=== PATIENT | male | born 2000 | race Caucasian/White ===

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

== ENCOUNTER 2020-11-27 18:47 | Day surgery (SDC) | payer OTHER, SELFPAY ==
[2020-11-27 19:01] VITALS: BP 125/72; PULSE 77; RESP 16; TEMP 36.9; O2SAT 100; BMI 25.1
--- NOTE | 2020-11-27 19:24 | HMH.EDGENADL ---
ED Disposition Clinical Impression: Food impaction of esophagus Qualifiers: Encounter type: initial encounter Qualified Code(s): T18.128A - Food in esophagus causing other injury, initial encounter Disposition: Still a Patient Condition on Discharge: Fair Referrals: Ministerio Magaña PA [Primary Care Provider] - - Critical Care Critical Care Time: No Attestation: On 11/27/20, the high probability of a clinically significant, sudden or life threatening deterioration of the following system(s) required my full and direct attention, intervention and personal management. The time I documented below is in addition to time spent performing reported procedures but includes the following listed in this critical care notation. Medical Decision Making - Romain Inquiry Pt receiving controlled substance: No Vital Signs: 11/27/20 19:01 Temperature 98.5 F Temperature Source Oral Pulse Rate [Right] 77 Respiratory Rate 16 Blood Pressure [Right Arm] 125/72 Blood Pressure Mean [Right Arm] 89 Blood Pressure Source [Right Arm] Automatic Cuff Blood Pressure Position [Right Arm] Sitting 02 Sat by Pulse Oximetry 100 Oxygen Delivery Method Room Air - Lab Data Lab Results 11/27/20 19:05: WBC 6.9, RBC 5.57, Hgb 16.9, Hct 49.9, MCV 89.6, MCH 30.3, MCHC 33.9, RDW 12.9, Plt Count 351, MPV 7.5, Neut % (Auto) 45.6, Lymph % (Auto) 40.3, [place] % (Auto) 4.8, Eos % (Auto) 8.0, Baso % (Auto) 1.3, Neut # (Auto) 3.1, Lymph # (Auto) 2.8, [place] # (Auto) 0.3, Eos # (Auto) 0.6 H, Baso # (Auto) 0.1 11/27/20 19:05: Sodium 139, Potassium 4.0, Chloride 99, Carbon Dioxide 33 H, Anion Gap 11.0, BUN 9, Creatinine 1.10, Estimated Creat Clear 116, Estimated GFR 85, Est GFR ( Amer) 102, Glucose 104 H, Calcium 9.7 Result diagrams: 11/27/20 19:05 11/27/20 19:05 Orders (Tests/Meds): ORDERS Category Date Time Status Covid-19 IgG/IgM ([facility]) Stat Lab 11/27/20 19:05 Received - Physician Consults Physician Consulted: Keisha Time: 19:51 Reason -: Surgical Eval/Care Comment/Response: He will come in to perform endoscopy General Adult HPI - General Chief complaint: Skin/Abscess/Foreign Body Stated complaint: FB chicken stuck in throat Time Seen by Provider: 11/27/20 19:10 Mode of Arrival: Ambulatory Limitations: No Limitations Description of Symptoms (Recalled from ER Triage Doc. by RN): Pt states he was eating [employer] tonight and has a food bolus at this time, pt has had two dialations in the past. Pt attempted to sip water and was unable to get it to go down. - History of Present Illness HPI narrative: 45 minutes ago he was eating chicken and got a food bolus stuck in his lower esophagus. This is the fourth time it is happened. He has had to be dilated a couple of times. He says the last time he had an episode was about a year ago when he was treated here. He has tried to drink water and it comes back up. Complains of some discomfort in the region of his lower sternum. - Related Data Home Medications Medication Instructions Recorded Confirmed No Known Home Medications 11/27/20 11/27/20 Allergies Allergy/AdvReac Type Severity Reaction Status Date / Time amoxicillin [AMOXICILLIN] Allergy Mild Verified 11/04/20 11:22 corn Allergy Verified 11/04/20 11:22 garlic Allergy Verified 11/04/20 11:22 shellfish derived Allergy Verified 11/04/20 11:22 [facility] History - Hepatitis A Screen Drug use history?: No High risk sexual behaviors?: No History of sexually transmitted infection?: No Currently employed?: No Childcare worker?: No Do you have indoor plumbing?: Yes Do you have electricity?: Yes Attestation statement:: This patient has been screened for Hepatitis A risk factors. I have reviewed the patient's past medical history: Yes Medical History: Reports:: Anxiety, Depression, Gastroesophageal Reflux Disease(GERD) Denies:: Diabetes Mellitus Type 1, Diabetes Mellitus Type 2, Seizures Laterality Cases: Right: Ot
--- NOTE | 2020-11-27 19:35 | PC.NURSE ---
Surgery paged for food bolus removal
--- NOTE | 2020-11-27 19:43 | PC.NURSE ---
Dr Garcia speaking with Dr Tovar
[2020-11-27 19:53] LABS: Chloride 99 mmol/L (98-107); Sodium 139 mmol/L (136-145)
[2020-11-27 19:56] LABS: Blood Urea Nitrogen 9 mg/dl (9-20); Creatinine Clearance Estimated 116 mL/min (50-200); Estimated Glomerular Filt Rate 85 ml/min (>60); GFR (African American) 102 ML/MIN (>60)
[2020-11-27 19:57] LABS: Basophils # 0.1 K/mm3 (0-0.2); Basophils % 1.3 % (0.1-2.0); Calcium 9.7 mg/dl (8.4-10.2); Carbon Dioxide 33 mmol/L (22.0-30.0); Eosinophils # 0.6 K/mm3 (0.0-0.4); Glucose 104 mg/dl (74-100); Hematocrit 49.9 % (42.0-52.0); Hemoglobin 16.9 g/dL (14.1-18.0); Lymphocytes # 2.8 K/mm3 (0.7-4.5); Lymphocytes % 40.3 % (10-50); Mean Corpuscular HGB Conc 33.9 g/dL (31.8-35.4); Mean Corpuscular Hemoglobin 30.3 pg (27.0-31.2); Mean Corpuscular Volume 89.6 fl (80-94); Mean Platelet Volume 7.5 fl (7.4-10.4); Monocytes # 0.3 K/mm3 (0.1-1.0); Monocytes % 4.8 % (1.7-9.3); Neutrophils # 3.1 K/mm3 (1.8-7.8); Neutrophils % 45.6 % (37.0-80.0); Platelet Count 351 K/mm3 (142-424); Red Blood Count 5.57 M/mm3 (4.60-6.20); Red Cell Distribution Width 12.9 % (11.5-17.5); White Blood Count 6.9 K/mm3 (4.8-10.8)
--- NOTE | 2020-11-27 20:14 | PC.NURSE ---
[address] DR. SWANSON CALLED THIS NURSE CONCERNING NEED TO DO EGD FOR THIS PT FOR ESOPHAGEAL FOOD IMPACTION.HE WANTS ANESTHESIA AND OR TEAM NOTIFIED. YUMI SMITH, KADY JOYCE, AND RACHEL FERREIRA NOTIFIED.
--- NOTE | 2020-11-27 20:28 | HMH.GSCON ---
*Admission Date: 11/27/20 *Reason for consult:: Esophageal food impaction *History of present illness: Patient is a 20-year-old male with previous history of dysphagia. He has had 4 episodes of esophageal food impaction requiring urgent upper endoscopy with extraction. Last episode was October [address] De La Rosa. He states that about 7 PM this evening he was eating chicken. He felt that it became stuck. He has had the usual symptoms consistent with esophageal obstruction and food impaction. He presented to the emergency department and surgical consultation was obtained. Review of Systems - Review of Systems Review of systems:: pertinent systems reviewed and negative unless documented below [facility] History I have reviewed the patient's past medical history: Yes Medical History: Reports:: Anxiety, Depression, Gastroesophageal Reflux Disease(GERD) Denies:: Diabetes Mellitus Type 1, Diabetes Mellitus Type 2, Seizures *Have you ever received a pneumonia vaccine?: No *Have you received a flu vaccine this season?: No Laterality Cases: Right: Other, Bilateral: Myringotomy (Ear Tubes), Tonsillectomy Amputation: No Fractures: No - *Social History Smoking Status: Never smoker Tobacco Type: smokeless tobacco # Packs/Day (cigarettes): 0 Alcohol Intake: never Substance Use Type: denies use *Occupational Status:: student *Travel in the last 8 weeks: None - Psychiatric History Pschychiatric History:: Reports:: Anxiety, Depression Family Hx:: Other Meds Home Medications Medication Instructions Recorded Confirmed Type No Known Home Medications 11/27/20 11/27/20 History Allergies Allergy/AdvReac Type Severity Reaction Status Date / Time amoxicillin [AMOXICILLIN] Allergy Mild Verified 11/04/20 11:22 corn Allergy Verified 11/04/20 11:22 garlic Allergy Verified 11/04/20 11:22 shellfish derived Allergy Verified 11/04/20 11:22 Exam Vital signs and Labs for Last 24 Hours: Temp Pulse Resp BP Pulse Ox 98.5 F 77 16 125/72 100 11/27/20 19:11/27/20 19:11/27/20 19:11/27/20 19:11/27/20 19:01 Laboratory Results - last 24 hr 11/27/20 19:05: WBC 6.9, RBC 5.57, Hgb 16.9, Hct 49.9, MCV 89.6, MCH 30.3, MCHC 33.9, RDW 12.9, Plt Count 351, MPV 7.5, Neut % (Auto) 45.6, Lymph % (Auto) 40.3, [place] % (Auto) 4.8, Eos % (Auto) 8.0, Baso % (Auto) 1.3, Neut # (Auto) 3.1, Lymph # (Auto) 2.8, [place] # (Auto) 0.3, Eos # (Auto) 0.6 H, Baso # (Auto) 0.1 11/27/20 19:05: Sodium 139, Potassium 4.0, Chloride 99, Carbon Dioxide 33 H, Anion Gap 11.0, BUN 9, Creatinine 1.10, Estimated Creat Clear 116, Estimated GFR 85, Est GFR ( Amer) 102, Glucose 104 H, Calcium 9.7 I & O for Last 24 hours: Intake & Output 11/25/20 11/26/20 11/27/20 11/28/20 11:59 11:59 11:59 11:59 Weight 170 lb - Constitutional no acute distress - *Routine HEENT Exam Head: Present: normocephalic Eye: Present: EOMI, PERRL ENT: Present: mucous membranes moist - *Routine Neck Exam Present: supple. Absent: lymphadenopathy - *Routine Respiratory Exam Present: CTA bilaterally - *Routine Cardiovascular Exam Present: RRR - *Routine Abdominal Exam Present: soft, normoactive bowel sounds. Absent: tenderness - *Routine Extremities Exam Absent: cyanosis, clubbing, edema - *Routine Skin Exam Present: warm. Absent: rash - *Routine Neurological Exam Present: alert, oriented X3 Results - Labs 11/27/20 19:05 11/27/20 19:05 Laboratory Results - last 24 hr 11/27/20 19:05: WBC 6.9, RBC 5.57, Hgb 16.9, Hct 49.9, MCV 89.6, MCH 30.3, MCHC 33.9, RDW 12.9, Plt Count 351, MPV 7.5, Neut % (Auto) 45.6, Lymph % (Auto) 40.3, [place] % (Auto) 4.8, Eos % (Auto) 8.0, Baso % (Auto) 1.3, Neut # (Auto) 3.1, Lymph # (Auto) 2.8, [place] # (Auto) 0.3, Eos # (Auto) 0.6 H, Baso # (Auto) 0.1 11/27/20 19:05: Sodium 139, Potassium 4.0, Chloride 99, Carbon Dioxide 33 H, Anion Gap 11.0, BUN 9, Creatinine 1.10, Estimated Creat Clear 116, Estimated G
[2020-11-27 20:33] LABS: Coronavirus 19 IgG Antibody Negative (Negative); Coronavirus 19 IgM Antibody Negative (Negative)
[2020-11-27 20:48] VITALS: BP 125/72; PULSE 77; RESP 16; TEMP 36.9; O2SAT 100
[2020-11-27 21:00] VITALS: BP 99/45; PULSE 79; RESP 16; O2SAT 99
--- NOTE | 2020-11-27 21:01 | HMH.SCOPE ---
- Procedure: Date: 11/27/20 Patient Date of :: 2000 Procedure Performed:: Esophagogastroduodenoscopy Indications:: Food impaction. Patient is a 20-year-old white male. He has had episodes of esophageal obstruction secondary to food impaction in the past. His first episode was at the age of 12 at which time he required emergent upper endoscopy. He has had 2 subsequent upper endoscopies performed emergently secondary to esophageal obstruction secondary to food impaction. He presented to the emergency department this evening after he had been eating chicken and felt like it could become lodged in the lower esophagus. Performing Provider:: Hiram Valdes MD Referring Provider:: Dr. Garcia Sedation:: MAC sedation Procedure:: Consent was obtained. Patient was taken to the endoscopy procedure room. He was positioned in a lateral decubitus position. Adequate intravenous sedation was achieved with anesthesia titration of propofol. Olympus endoscope was inserted via the oropharynx. In the proximal and midesophagus a piece of meat was encountered. This was actually able to be retrieved with suction applied to the endoscope. The endoscope was then reinserted and advanced through the esophagus. There was some particulate food matter but no obstruction. Stomach was cannulated. There was liquid and food filling a large portion of the stomach. Stomach was desufflated and the endoscope was withdrawn. Findings:: Esophageal food impaction Recommendations:: I would recommend proton pump inhibitors. May plan for barium swallow. Possible patient may have some degree of functional esophageal dysmotility. Complications:: None Estimated blood obtained (mL): 0
[2020-11-27 21:10] VITALS: BP 95/43; PULSE 70; RESP 16; O2SAT 99
[2020-11-27 21:20] VITALS: BP 118/72; PULSE 75; RESP 16; O2SAT 99
[2020-11-27 21:29] VITALS: BP 103/63; PULSE 70; RESP 16; O2SAT 100
--- NOTE | 2020-11-28 06:52 | P.PN_ITS ---
[facility] Anesthesia Checklist - Patient Identification Patient Identification: Arm Band - Structural Data Admitted From: Home Planned Operative Procedure/s: egd Consent for Planned Operative Procedure(s) Verified: Yes Verified Documents: Surgical Consent - NPO Status Verified Time NPO: 18:00 - Chart Verification Results Verified: None - Additional verifications Anesthesia Reactions: No - Anesthesia Plan Anesthesia Risk discussed: Yes Anesthesia Plan: Verified ASA Class: II Anesthesia Type: General [facility] History I have reviewed the patient's past medical history: Yes Medical History: Reports:: Anxiety, Depression, Gastroesophageal Reflux Disease(GERD) Denies:: Diabetes Mellitus Type 1, Diabetes Mellitus Type 2, Seizures *Have you ever received a pneumonia vaccine?: No *Have you received a flu vaccine this season?: No Other Medical History: Reports: Other Anesthesia experience/problems:: none Laterality Cases: Right: Other, Bilateral: Myringotomy (Ear Tubes), Tonsillectomy Amputation: No Fractures: No - *Social History Smoking Status: Never smoker Tobacco Type: smokeless tobacco # Packs/Day (cigarettes): 0 Alcohol Intake: never Substance Use Type: denies use *Occupational Status:: student *Travel in the last 8 weeks: None - Psychiatric History Pschychiatric History:: Reports:: Anxiety, Depression Family Hx:: No significant family history, Other
== END 2020-11-27 20:47 ==
LOC: ER 19:26 → SDC 20:47
PROVIDERS: Emergency Provider Emergency Medicine; PCP Physician Assistant; Visit Provider Surgery
PROC: 0DJ08ZZ Inspection of Upper Intestinal Tract, Via Natural or Artificial Opening Endoscopic (ICD-10-PCS; CPT 43235; principal; 2020-11-27 20:30)
DX: T18.128A Food in esophagus causing other injury, initial encounter (principal); Z87.821 Personal history of retained foreign body fully removed; F41.9 Anxiety disorder, unspecified; F32.9 Major depressive disorder, single episode, unspecified; K21.9 Gastro-esophageal reflux disease without esophagitis; Z90.89 Acquired absence of other organs; Z88.1 Allergy status to other antibiotic agents; Z91.013 Allergy to seafood; Z91.018 Allergy to other foods
CPT/HCPCS: 43247; 80048; 85025; 86328; 96365; 99281

== ENCOUNTER 2020-12-22 12:42 | Emergency (ER) | payer OTHER, SELFPAY ==
[2020-12-22 12:42] VITALS: BP 111/51; PULSE 60; RESP 18; TEMP 36.9; O2SAT 100; BMI 23.6
[2020-12-22 12:45] VITALS: BP 111/51; PULSE 60; RESP 18; TEMP 36.9; O2SAT 100; BMI 23.7
--- NOTE | 2020-12-22 12:54 | XR_ITS ---
PROCEDURE: XR RIBS RT MIN 3V W CXR1V CLINICAL INDICATION: FELL OFF OF LADDER Posttraumatic pain COMPARISON: CR CXR CHEST(2 VIEWS-NOT PORTABLE) from 02/12/2012 CR CXR CHEST(2 VIEWS-NOT PORTABLE) from 02/13/2012 CR XR CHEST 2V from 11/12/2019 FINDINGS: Unremarkable cardiovascular structures. No lobar consolidation or collapse is evident. There is some patchy density in the left midlung similar to the previous exam. Old right clavicular fracture. No displaced rib fracture apparent IMPRESSION: No acute finding. Chronic density left midlung etiology indeterminate Dictated by: Paul Beard MD 12/22/2020 13:12 Paul Beard MD in [place] 12/22/2020 13:12
--- NOTE | 2020-12-22 13:42 | HMH.EDUTC ---
[facility] [place] Clinical Impression: Contusion of rib on right side Qualifiers: Encounter type: initial encounter Qualified Code(s): S20.211A - Contusion of right front wall of thorax, initial encounter Disposition: Home, Self-Care Condition on Discharge: Good Instructions: DI for Rib Contusion, Etodolac Additional Instructions: *Etodolac [place] 8 hours with meal as needed for pain/inflammation *Not additional anti-inflammatory like motrin, aleve, advil with the above amount of Etodolac. You can still take Tylenol every 4 hours as needed if you need something else for pain *Ice 20 minutes every 2 hours for the first 48 hours after the initial injury followed by moist heat every 20 minutes 3-4 times a day to affected area *Keep this area active, no movement leads to more stiffness, However take it easy and avoid heavy lifting pushing or pulling *Follow up with you family doctor if no improvement for further treatment Return if needed Straight to ER if any life threatening symptoms Prescriptions: Etodolac [Etodolac 200mg Cap*] 200 mg PO Q8H PRN #15 cap PRN Reason: Moderate Pain Transmission Status: Received by [facility] Lidocaine [Lidocaine Pain Relief] 1 each TP DAILY #5 adh..patch Transmission Status: Received by [facility] Referrals: PCP,No [Primary Care Provider] - As needed Forms: Work/School Release Time of Disposition: 13:55 Medical Decision Making - Romain Inquiry Pt receiving controlled substance: No Romain was queried for this patient: No Vital Signs: 12/22/20 12:42 12/22/20 12:45 12/22/20 13:57 Temperature 98.4 F 98.4 F 98.4 F Temperature Source Oral Oral Pulse Rate 60 Pulse Rate [Left Radial] 60 60 Respiratory Rate 18 18 18 Blood Pressure 111/51 L Blood Pressure [Right Arm] 111/51 L 111/51 L Blood Pressure Mean [Right Arm] 71 71 Blood Pressure Source [Right Arm] Automatic Cuff Automatic Cuff Blood Pressure Position [Right Arm] Sitting Sitting 02 Sat by Pulse Oximetry 100 100 Oxygen Delivery Method Room Air Room Air - Radiology Data #1 Image(s): Chest (with right ribs) Image Reviewed: Yes I have reviewed radiologist's interpretation IMPRESSION: No acute finding. [facility] [place] - General Stated complaint: AO [id number] fell off ladder, rt side pain Time Seen by Provider: 12/22/20 13:42 Mode of Arrival: Ambulatory Source of Information: Patient Limitations: No Limitations Description of Symptoms (Recalled from Triage Doc. by RN): PATIENT C/O RIGHT SIDE/RIB PAIN AFTER FALLING APPROX 7 FOOT OFF OF A LADDER YESTERDAY AND HITTING RIGHT SIDE. DENIES HITTING HEAD OR LOC. PATIENT STATES HE IS HAVING DIFFICULTY BREATHING, SLEEPING AND EATING HEENT Symptoms (Recalled from RN notes): No Resp Symptoms (Recalled from RN notes): No Skin Symptoms (Recalled from RN notes): No MS Symptoms (Recalled from RN notes): Yes Functional Status (Recalled from RN notes): WNL - History of Present Illness Provider Complaint: Patient states that he was on a ladder yesterday when he slipped and fell and landed on his right side State that ever since he has been having pain in his right ribs that hurts when he moves, takes a deep breath or sleeping and rolls over States that he was still having pain today so he came in to get checked to make sure that he didnt have a broken rib - Related Data Previous Rx's Medication Instructions Recorded Etodolac [Etodolac 200mg Cap*] 200 mg PO Q8H PRN #15 cap 12/22/20 Lidocaine [Lidocaine Pain Relief] 1 each TP DAILY #5 adh..patch 12/22/20 Allergies Allergy/AdvReac Type Severity Reaction Status Date / Time amoxicillin [AMOXICILLIN] Allergy Mild Verified 11/04/20 11:22 corn Allergy Verified 11/04/20 11:22 garlic Allergy Verified 11/04/20 11:22 shellfish derived Allergy Verified 11/04/20 11:22 - Worker's Comp Is this a Worker's Comp case?: No H History - Hepatitis A Screen Drug use history?: No High risk sexual behaviors?: No
[2020-12-22 13:57] VITALS: BP 111/51; PULSE 60; RESP 18; TEMP 36.9; O2SAT 100
== END 2020-12-22 14:00 | disposition home or self-care (01) ==
PROVIDERS: Emergency Provider Nurse Practitioner
DX: S20.211A Contusion of right front wall of thorax, initial encounter (principal); W11.XXXA Fall on and from ladder, initial encounter; Y92.9 Unspecified place or not applicable; F41.8 Other specified anxiety disorders; E11.9 Type 2 diabetes mellitus without complications; K21.9 Gastro-esophageal reflux disease without esophagitis
CPT/HCPCS: 71101; 99202; G0463

== ENCOUNTER 2021-05-11 21:44 | Emergency (ER) | payer OTHER, SELFPAY ==
[2021-05-11 21:53] VITALS: BP 132/79; PULSE 75; RESP 16; TEMP 36.8; O2SAT 98; BMI 23.6
--- NOTE | 2021-05-11 21:58 | XR_ITS ---
PROCEDURE INFORMATION: Exam: XR Left Ankle Exam date and time: 05/11/2021 9:58 PM Age: 21 years old Clinical indication: Injury or trauma; Other: Ramp kicked out and hit left foot/left ankle. ; Blunt trauma; Patient HX: Patient was attempting to load a riding mower when ramp kicked out and hit his left ankle/left foot. ; Additional info: Lawnmower fell on foot TECHNIQUE: Imaging protocol: XR Left ankle. Views: 3 or more views. COMPARISON: No relevant prior studies available. FINDINGS: Bones/joints: No acute fracture. No dislocation. No significant joint effusion. Soft tissues: Unremarkable. IMPRESSION: No fracture. If pain persists, suggest splinting and follow up radiographs in 7-10 days.
--- NOTE | 2021-05-11 21:58 | XR_ITS ---
PROCEDURE INFORMATION: Exam: XR Left Foot Exam date and time: 05/11/2021 9:58 PM Age: 21 years old Clinical indication: Injury or trauma; Other: Left foot injured when load ramp kicked out. ; Blunt trauma; Patient HX: Patient was attempting to load a riding mower when ramp kicked out and hit his left ankle/left foot. ; Additional info: Lawnmower fell on foot TECHNIQUE: Imaging protocol: XR Left foot. Views: 3 or more views. COMPARISON: No relevant prior studies available. FINDINGS: Bones/joints: No acute fracture. No dislocation. Soft tissues: Unremarkable. IMPRESSION: No fracture. If pain persists, suggest splinting and follow up radiographs in 7-10 days.
--- NOTE | 2021-05-11 22:04 | HMH.EDLOEX ---
ED Disposition Clinical Impression: Foot injury Qualifiers: Encounter type: initial encounter Laterality: left Qualified Code(s): S99.922A - Unspecified injury of left foot, initial encounter Contusion of foot, left Qualifiers: Encounter type: initial encounter Qualified Code(s): S90.32XA - Contusion of left foot, initial encounter Disposition: Home, Self-Care Condition on Discharge: Good Instructions: DI for Foot Sprain Additional Instructions: weight bearing as tolerated, ibuprofen and tylenol for pain. ice and elevate throughout day. follow up with pcp or ortho if symptoms persist. Referrals: Provider,Referral, MD [Primary Care Provider] - - Critical Care Critical Care Time: No Attestation: On , the high probability of a clinically significant, sudden or life threatening deterioration of the following system(s) required my full and direct attention, intervention and personal management. The time I documented below is in addition to time spent performing reported procedures but includes the following listed in this critical care notation. Medical Decision Making - Medical Records Medical records reviewed: Yes: I reviewed the patient's medical records. - Romain Inquiry Pt receiving controlled substance: No Vital Signs: 05/11/21 21:53 05/11/21 23:18 Temperature 98.3 F 98.1 F Temperature Source Oral Oral Pulse Rate 78 Pulse Rate [Right Brachial] 75 Respiratory Rate 16 18 Blood Pressure 121/75 Blood Pressure [Right Arm] 132/79 Blood Pressure Mean [Right Arm] 96 Blood Pressure Source Automatic Cuff Blood Pressure Source [Right Arm] Automatic Cuff Blood Pressure Position Sitting Blood Pressure Position [Right Arm] Sitting 02 Sat by Pulse Oximetry 98 Oxygen Delivery Method Room Air Room Air - Lab Data Lab results reviewed: Yes: I reviewed the patient's lab results. - Radiology Data #1 Image(s): Ankle, Foot/Toes Image Reviewed: Yes I reviewed the patient's radiology image, Yes I have reviewed radiologist's interpretation Preliminary Findings: No Fracture Seen Medical Decision Narrative: no acute fx seen with stable exam Lower Extremity Injury HPI - General Chief Complaint: Extremity Injury, Lower Stated Complaint: AO 05/11@2000 injured l foot Time Seen by Provider: 05/11/21 22:04 Mode of Arrival: Family Vehicle Source of Information: Patient, Relative, Medical Record Limitations: No Limitations Description of Symptoms (Recalled from ER Triage Doc. by RN): lawnmower fell on foot. left abrasion to left great toe and states he has trouble with moving it since. no previous surgeries, no major medical issues. takes no meds. - History of Present Illness HPI Narrative: acute lt foot injury and lt ankle injury as rafael dobson was dropped on it complaint: ankle injury, foot injury Onset (ago): hour(s) Injury: Left: ankle, foot Type of Injury: blunt Place: home Severity: moderate Context: direct blow Associated symptoms: swelling, able to partially bear weight Other symptoms: none - Related Data Home Medications Medication Instructions Recorded Confirmed No Known Home Medications 05/11/21 05/11/21 Allergies Allergy/AdvReac Type Severity Reaction Status Date / Time amoxicillin [AMOXICILLIN] Allergy Mild Verified 11/04/20 11:22 corn Allergy Verified 11/04/20 11:22 garlic Allergy Verified 11/04/20 11:22 shellfish derived Allergy Verified 11/04/20 11:22 [facility] History - Hepatitis A Screen Drug use history?: No High risk sexual behaviors?: No History of sexually transmitted infection?: No Currently employed?: No Childcare worker?: No Do you have indoor plumbing?: Yes Do you have electricity?: Yes Attestation statement:: This patient has been screened for Hepatitis A risk factors. I have reviewed the patient's past medical history: Yes Medical History: Reports:: Anxiety, Depression, Diabetes Mellitus Type 2, Gastroesophageal Reflux Disease(GERD) De
[2021-05-11 23:18] VITALS: BP 121/75; PULSE 78; RESP 18; TEMP 36.7; O2SAT 98
== END 2021-05-11 23:29 | disposition home or self-care (01) ==
PROVIDERS: Emergency Provider Emergency Medicine
DX: S90.32XA Contusion of left foot, initial encounter (principal); W30.89XA Contact with other specified agricultural machinery, initial encounter; Y92.017 Garden or yard in single-family (private) house as the place of occurrence of the external cause
CPT/HCPCS: 73610; 73630; 99282

== ENCOUNTER → 2021-07-19 13:35 | Outpatient (CLI) | payer OTHER, SELFPAY | PROVIDERS: Visit Provider Nurse Practitioner | DX: Z20.822 Contact with and (suspected) exposure to COVID-19 (principal) | CPT/HCPCS: C9803; U0003; U0005 ==

== ENCOUNTER 2021-07-23 18:20 | Emergency (ER) | payer OTHER, SELFPAY ==
[2021-07-23 19:30] VITALS: BP 119/69; PULSE 58; RESP 20; TEMP 36.9; O2SAT 100; BMI 22.9
--- NOTE | 2021-07-23 19:45 | HMH.EDUTC ---
[facility] [place] Dis[place] Clinical Impression: Viral syndrome, Exposure to COVID-19 virus Disposition: Home, Self-Care Condition on Discharge: Good Instructions: DI for Viral Syndrome, DI for COVID-19 (Suspected or Confirmed ), Preventing the Spread of Coronavirus Discharge Instructions Additional Instructions: Drink plenty of fluids. Take tylenol or ibuprofen for pain or fever. Take the medications as directed. Follow up with your regular doctor. GO TO THE ER FOR ANY WORSENING SYMPTOMS Quarantine until you know the results of your covid-19 test. If it is positive, the health department should call you and give you further instructions about your length of Quarantine and other things. Notify your school or workplace of your results and follow their instructions regarding return to work/school. Prescriptions: predniSONE [Deltasone 10mg tablet] 10 mg PO BID 3 Days #6 tab Transmission Status: Received by [facility] Azithromycin [Z-Abdulaziz 250mg Tab*] 250 mg PO UD DOSE PK #6 tab Transmission Status: Received by [facility] Ondansetron [Zofran 4mg ODT] 4 mg PO DAILYP PRN #12 tab PRN Reason: Nausea Transmission Status: Received by [facility] Referrals: Provider,Referral, [Primary Care Provider] - Forms: Work/School Release Time of Disposition: 19:49 Medical Decision Making - Medical Records Medical records reviewed: No: I reviewed the patient's medical records. - Romain Inquiry Pt receiving controlled substance: No Vital Signs: 07/23/21 19:30 07/23/21 19:54 Temperature 98.4 F 98.4 F Temperature Source Oral Pulse Rate 58 L Pulse Rate [Right Brachial] 58 L Respiratory Rate 20 20 Blood Pressure 119/69 Blood Pressure [Right Arm] 119/69 Blood Pressure Mean [Right Arm] 85 Blood Pressure Source [Right Arm] Automatic Cuff Blood Pressure Position [Right Arm] Sitting 02 Sat by Pulse Oximetry 100 Oxygen Delivery Method Room Air - Lab Data Lab results reviewed: Yes: I reviewed the patient's lab results. Lab Results 07/23/21 19:55: Strep Scn Rapid Clinic Negative Orders (Tests/Meds): ORDERS Category Date Time Status Covid-19 Nasal PCR ([facility]) Routine Lab 07/23/21 19:33 Received Strep Screen Confirmation Stat Micro 07/23/21 19:55 Received [facility] [place] HPI - General Stated complaint: covid symptoms Time Seen by Provider: 07/23/21 19:45 Mode of Arrival: Ambulatory Source of Information: Patient Limitations: No Limitations Description of Symptoms (Recalled from Triage Doc. by RN): PATIENT C/O HEADACHE, VOMITING, DIARRHEA, AND BODY ACHES. HEENT Symptoms (Recalled from RN notes): Yes Resp Symptoms (Recalled from RN notes): No Skin Symptoms (Recalled from RN notes): No MS Symptoms (Recalled from RN notes): No Functional Status (Recalled from RN notes): WNL - History of Present Illness Provider Complaint: He has had runny nose, dry cough, nausea, poor appetite, for the past 1 week. He was checked for covid-19 when his symptoms first started and it was negative. He is here today to be rechecked because he is not getting better. - Related Data Previous Rx's Medication Instructions Recorded prednisone 20 mg tablet 20 mg PO BID 5 Days #10 tab 06/05/21 triamcinolone acetonide 0.5 % 1 applic TOPICAL BID 7 Days #15 g 06/05/21 topical cream Azithromycin [Z-Abdulaziz 250mg Tab*] 250 mg PO UD DOSE PK #6 tab 07/23/21 Ondansetron [Zofran 4mg ODT] 4 mg PO DAILYP PRN #12 tab 07/23/21 predniSONE [Deltasone 10mg tablet] 10 mg PO BID 3 Days #6 tab 07/23/21 Allergies Allergy/AdvReac Type Severity Reaction Status Date / Time amoxicillin [AMOXICILLIN] Allergy Mild Verified 06/05/21 11:49 corn Allergy Verified 06/05/21 11:49 garlic Allergy Verified 06/05/21 11:49 shellfish derived Allergy Verified 06/05/21 11:49 - Worker's Comp Is this a Worker's Comp case?: No [facility] History - Hepatitis A Screen Drug use history?: No High risk sexual behaviors?: No
[2021-07-23 19:54] VITALS: BP 119/69; PULSE 58; RESP 20; TEMP 36.9; O2SAT 100
[2021-07-23 19:57] LABS: UTC Strep Screen (Rapid) Negative (Negative)
== END 2021-07-23 20:02 | disposition home or self-care (01) ==
PROVIDERS: Emergency Provider Nurse Practitioner Family
DX: B34.9 Viral infection, unspecified (principal); Z20.822 Contact with and (suspected) exposure to COVID-19
CPT/HCPCS: 87880; 99203; C9803; G0463; U0003; U0005

== ENCOUNTER 2021-08-06 20:40 | Emergency (ER) | payer OTHER, SELFPAY ==
--- NOTE | 2021-08-06 20:44 | XR_ITS ---
PROCEDURE INFORMATION: Exam: XR Left Ankle Exam date and time: 08/06/2021 8:44 PM Age: 21 years old Clinical indication: Injury or trauma; Fall; Sprain or strain; Ankle; Left; Injury date: 08/06/2021; Additional info: Pain post fall off steps TECHNIQUE: Imaging protocol: XR Left ankle. Views: 3 or more views. COMPARISON: CR XR ANKLE LT MIN 3V 05/11/2021 10:02 PM FINDINGS: Bones/joints: Normal. Soft tissues: Normal. IMPRESSION: No acute findings.
--- NOTE | 2021-08-06 20:44 | XR_ITS ---
PROCEDURE INFORMATION: Exam: XR Left Foot Exam date and time: 08/06/2021 8:44 PM Age: 21 years old Clinical indication: Injury or trauma; Fall; Sprain or strain; Foot; Left; Injury date: 08/06/2021; Additional info: Pain post fall off porch steps TECHNIQUE: Imaging protocol: XR Left foot. Views: 3 or more views. COMPARISON: CR XR FOOT LT MIN 3V 05/11/2021 10:03 PM FINDINGS: Bones/joints: Normal. Soft tissues: Normal. IMPRESSION: No acute findings.
[2021-08-06 20:46] VITALS: PULSE 83; RESP 20; O2SAT 98; BMI 23.6
--- NOTE | 2021-08-06 21:11 | HMH.EDUTC ---
[facility] – [place] Disposition Clinical Impression: Sprain of left foot Qualifiers: Encounter type: initial encounter Qualified Code(s): S93.602A - Unspecified sprain of left foot, initial encounter Left ankle pain Qualifiers: Chronicity: acute Qualified Code(s): M25.572 - Pain in left ankle and joints of left foot Left ankle sprain Qualifiers: Encounter type: initial encounter Involved ligament of ankle: unspecified ligament Qualified Code(s): S93.402A - Sprain of unspecified ligament of left ankle, initial encounter Disposition: Home, Self-Care Condition on Discharge: Good Instructions: DI for Ankle Sprain, DI for Foot Sprain Additional Instructions: Rest the extremity, apply ice for 15 minutes as tolerated three or four times per day, Elevate the extremity as tolerated while you are resting. Take ibuprofen for pain. I sent in a prescription to your pharmacy. Follow up with Dr. West (podiatry). Sometimes there can be fractures that don't show up well on the first set of x-rays. So, you should follow up if you continue to have symptoms. I put in a referral but you need to call her office and schedule an appointment. Use the crutches for ambulation until you are saw by podiatry. Follow up with your regular doctor. GO TO THE ER FOR ANY WORSENING SYMPTOMS Prescriptions: Ibuprofen [Ibuprofen 800mg Tablet] 800 mg PO Q8HP PRN #30 tab PRN Reason: Moderate Pain Transmission Status: Sent to [facility] Referrals: Provider,Referral, [Primary Care Provider] - Delisa West DPM [Staff Physician] - Time of Disposition: 22:29 Medical Decision Making - Medical Records Medical records reviewed: No: I reviewed the patient's medical records. - Romain Inquiry Pt receiving controlled substance: No Vital Signs: 08/06/21 20:46 08/06/21 22:22 Temperature 98.3 F Pulse Rate 87 Pulse Rate [Left] 83 Respiratory Rate 20 19 Blood Pressure 0/0 L 02 Sat by Pulse Oximetry 98 Orders (Tests/Meds): ORDERS Category Date Time Status Foot XR left minimum 3 views [XR foot LT min 3V] Stat Exams 08/06/21 20:44 Taken XR ankle LT min 3V Stat Exams 08/06/21 20:44 Taken - Radiology Data #1 Image(s): Ankle Image Reviewed: Yes I reviewed the patient's radiology image, Yes I have reviewed radiologist's interpretation #2 Image(s): Foot/Toes Image Reviewed: Yes I reviewed the patient's radiology image, Yes I have reviewed radiologist's interpretation [facility] [place] HPI - General Stated complaint: AO 08/06@2030 injured L Ankle Time Seen by Provider: 08/06/21 21:11 Mode of Arrival: Ambulatory Source of Information: Patient Limitations: No Limitations Description of Symptoms (Recalled from Triage Doc. 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 That caused him to twist his ankle and foot. Since then he has had pain and swelling of that ankle and foot. He denies any other injury. - Related Data Previous Rx's Medication Instructions Recorded prednisone 20 mg tablet 20 mg PO BID 5 Days #10 tab 06/05/21 triamcinolone acetonide 0.5 % 1 applic TOPICAL BID 7 Days #15 g 06/05/21 topical cream Azithromycin [Z-Abdulaziz 250mg Tab*] 250 mg PO UD DOSE PK #6 tab 07/23/21 Ondansetron [Zofran 4mg ODT] 4 mg PO DAILYP PRN #12 tab 07/23/21 predniSONE [Deltasone 10mg tablet] 10 mg PO BID 3 Days #6 tab 07/23/21 Ibuprofen [Ibuprofen 800mg 800 mg PO Q8HP PRN #30 tab 08/06/21 Tablet] Allergies Allergy/AdvReac Type Severity Reaction Status Date / Time amoxicillin [AMOXICILLIN] Allergy Mild Verified 06/05/21
[2021-08-06 22:22] VITALS: BP 0/0; PULSE 87; RESP 19; TEMP 36.8
== END 2021-08-06 22:30 | disposition home or self-care (01) ==
LOC: UTC 20:44
PROVIDERS: Emergency Provider Nurse Practitioner Family
DX: M25.572 Pain in left ankle and joints of left foot (principal); S93.602A Unspecified sprain of left foot, initial encounter; W17.2XXA Fall into hole, initial encounter
CPT/HCPCS: 29515; 73610; 73630; 99202; G0463

== ENCOUNTER 2021-10-08 11:49 | Emergency (ER) | payer OTHER, SELFPAY ==
[2021-10-08 13:50] VITALS: BP 119/78; PULSE 108; RESP 20; TEMP 39.1; O2SAT 100; BMI 25.0
[2021-10-08 14:01] LABS: UTC Strep Screen (Rapid) Negative (Negative)
[2021-10-08 14:02] LABS: UTC Influenza A Antigen Negative (Negative); UTC Influenza B Antigen Negative (Negative)
--- NOTE | 2021-10-08 14:04 | HMH.EDUTC ---
[facility] [place]ression: Upper respiratory infection, viral Disposition: Home, Self-Care Condition on Discharge: Good Instructions: DI for Viral Upper Respiratory Infection -- Adult Additional Instructions: covid swab was sent to lab, call tomorrow for results. self isolate until test results are known to be negative No sign of a bacterial infection. Likely viral. Viruses can take 7-14 days to run their course. Nasal saline and bulb syringe or nose Talya to remove nasal drainage to help with nasal congestion. Hard to eat, drink, sleep with nasal congestion so important to keep this cleaned out. Monitor temp. Tylenol or Motrin as needed for pain or fever Encourage fluids, water, Gatorade, Powerade, Pedialyte if /toddler/child Warm salt water gargles Warm fluids Sore throat lozenges Sleep elevated Humidifier/vaporizer Follow-up immediately for new or worsening symptoms or no noticeable improvement over the next 48-72 hours. Prescriptions: Brompheniramine/Pseudoephed/Dm [Bromfed Dm Cough Syrup] 5 ml PO Q46H PRN 14 Days #100 ml PRN Reason: Cough Prescription Printed Referrals: Provider,Referral, MD [Primary Care Provider] - Time of Disposition: 14:10 Medical Decision Making - Romain Inquiry Pt receiving controlled substance: No - Lab Data Lab Results 10/08/21 13:47: Influenza Type A Ag Negative, Influenza Type B Ag Negative 10/08/21 13:47: Strep Scn Rapid Clinic Negative Orders (Tests/Meds): ORDERS Category Date Time Status Covid-19 Nasal PCR ([facility]) Routine Lab 10/08/21 14:02 Ordered Strep Screen Confirmation Stat Micro 10/08/21 13:47 [place] [facility] [place] - General Chief complaint: [facility] Stated complaint: covid symptoms Time Seen by Provider: 10/08/21 14:04 Mode of Arrival: Ambulatory Source of Information: Patient Limitations: No Limitations - History of Present Illness Provider Complaint: 21 yr old male presents for cough,nasal congestion, body aches and chills for 2 days - Related Data Previous Rx's Medication Instructions Recorded prednisone 20 mg tablet 20 mg PO BID 5 Days #10 tab 06/05/21 triamcinolone acetonide 0.5 % 1 applic TOPICAL BID 7 Days #15 g 06/05/21 topical cream Azithromycin [Z-Abdulaziz 250mg Tab*] 250 mg PO UD DOSE PK #6 tab 07/23/21 Ondansetron [Zofran 4mg ODT] 4 mg PO DAILYP PRN #12 tab 07/23/21 predniSONE [Deltasone 10mg tablet] 10 mg PO BID 3 Days #6 tab 07/23/21 Ibuprofen [Ibuprofen 800mg 800 mg PO Q8HP PRN #30 tab 08/06/21 Tablet] Brompheniramine/Pseudoephed/Dm 5 ml PO Q46H PRN 14 Days #100 ml 10/08/21 [Bromfed Dm Cough Syrup] Allergies Allergy/AdvReac Type Severity Reaction Status Date / Time amoxicillin [AMOXICILLIN] Allergy Mild Verified 06/05/21 11:49 corn Allergy Verified 06/05/21 11:49 garlic Allergy Verified 06/05/21 11:49 shellfish derived Allergy Verified 06/05/21 11:49 [facility] History - Hepatitis A Screen Attestation statement:: This patient has been screened for Hepatitis A risk factors. I have reviewed the patient's past medical history: Yes Medical History: Reports:: Anxiety, Depression, Diabetes Mellitus Type 2, Gastroesophageal Reflux Disease(GERD) Denies:: Diabetes Mellitus Type 1, Seizures Other Medical History: Reports: Other Laterality Cases: Right: Other, Bilateral: Myringotomy (Ear Tubes), Tonsillectomy Amputation: No Fractures: No - Social History Smoking Status: Never smoker Tobacco Type: smokeless tobacco # Packs/Day (cigarettes): 0 Alcohol Intake: never Substance Use Type: denies use Occupational Status: other - Psychiatric History Pschychiatric History:: Reports:: Anxiety, Depression Family Hx:: No significant family history ROS Obtained: Yes Systems reviewed as appropriate & no additional complaints - Constitutional Constitutional: Reports system reviewed and no additional complaints, except as docu, Reports body ache, Reports chills, Denies fever(s)
[2021-10-08 14:17] VITALS: BP 119/78; PULSE 108; RESP 20; TEMP 39.1; O2SAT 100
== END 2021-10-08 14:20 | disposition home or self-care (01) ==
PROVIDERS: Emergency Provider Nurse Practitioner
DX: J06.9 Acute upper respiratory infection, unspecified (principal); U07.1 COVID-19; E11.9 Type 2 diabetes mellitus without complications; K21.9 Gastro-esophageal reflux disease without esophagitis; F41.8 Other specified anxiety disorders
CPT/HCPCS: 87804; 87880; 99203; C9803; G0463; U0003; U0005

== ENCOUNTER 2021-11-10 16:10 | Emergency (ER) | payer OTHER, SELFPAY ==
[2021-11-10 17:40] VITALS: BP 123/76; PULSE 63; RESP 14; TEMP 37.1; O2SAT 100; BMI 25.1
--- NOTE | 2021-11-10 17:53 | HMH.EDUTC ---
[facility] [place]: Pain in bone of jaw Disposition: Home, Self-Care Condition on Discharge: Good Instructions: Jaw Pain: It's Not Just Stress, DI for Temporomandibular Disorder Additional Instructions: Take the ibuprofen as directed. Take it regularly for the next few days. The muscle relaxer (cyclobenzaprine-flexeril) will make you drowsy, so don't drive or operate heavy machinery after taking it. Take the medications as directed. Follow up with your regular doctor. Follow up with your dentist if you keep having these symptoms. GO TO THE ER FOR ANY WORSENING SYMPTOMS D Prescriptions: Ibuprofen [Ibuprofen 800mg Tablet] 800 mg PO Q8HP PRN #30 tab PRN Reason: Moderate Pain Transmission Status: Received by [facility] Cyclobenzaprine HCl [Cyclobenzaprine 10mg Tab] 10 mg PO BIDP PRN #20 tab PRN Reason: Muscle Spasm Transmission Status: Received by [facility] Referrals: Provider,Referral, [Primary Care Provider] - Forms: Work/School Release Time of Disposition: 18:37 Medical Decision Making - Medical Records Medical records reviewed: No: I reviewed the patient's medical records. - Romain Inquiry Pt receiving controlled substance: No Vital Signs: 11/10/21 17:40 11/10/21 18:47 Temperature 98.7 F 98.7 F Temperature Source Oral Pulse Rate 63 Pulse Rate [Left] 63 Respiratory Rate 14 14 Blood Pressure 123/76 Blood Pressure [Right Arm] 123/76 Blood Pressure Mean [Right Arm] 91 02 Sat by Pulse Oximetry 100 - Lab Data Lab results reviewed: Yes: I reviewed the patient's lab results. Lab Results 11/10/21 18:19: Strep [facility] Rapid Clinic Negative Orders (Tests/Meds): ORDERS Category Date Time Status Strep Screen Confirmation Stat Micro 11/10/21 18:19 [place] [facility] [place] - General Stated complaint: Left jaw pain Time Seen by Provider: 11/10/21 17:53 Mode of Arrival: Ambulatory Source of Information: Patient Limitations: No Limitations Description of Symptoms (Recalled from Triage Doc. by RN): pt woke up this am with L jaw pain. pt states he is unable to open his mouth wide and its painful to chew. HEENT Symptoms (Recalled from RN notes): Yes Resp Symptoms (Recalled from RN notes): No Skin Symptoms (Recalled from RN notes): No MS Symptoms (Recalled from RN notes): No Functional Status (Recalled from RN notes): wnl - History of Present Illness Provider Complaint: He states that since yesterday he has been having pain in his right jaw that hurts worse when he opens his mouth or chews food. He states that it hurts very bad when he bites down. He denies any dental pain or history of dental issues. He denies any fever or chills. He denies any history of tmj or similar jaw pain. He denies any injury to his jaw or face. - Related Data Previous Rx's Medication Instructions Recorded prednisone 20 mg tablet 20 mg PO BID 5 Days #10 tab 06/05/21 triamcinolone acetonide 0.5 % 1 applic TOPICAL BID 7 Days #15 g 06/05/21 topical cream Azithromycin [Z-Abdulaziz 250mg Tab*] 250 mg PO UD DOSE PK #6 tab 07/23/21 Ondansetron [Zofran 4mg ODT] 4 mg PO DAILYP PRN #12 tab 07/23/21 predniSONE [Deltasone 10mg tablet] 10 mg PO BID 3 Days #6 tab 07/23/21 Ibuprofen [Ibuprofen 800mg 800 mg PO Q8HP PRN #30 tab 08/06/21 Tablet] Brompheniramine/Pseudoephed/Dm 5 ml PO Q46H PRN 14 Days #100 ml 10/08/21 [Bromfed Dm Cough Syrup] Cyclobenzaprine HCl 10 mg PO BIDP PRN #20 tab 11/10/21 [Cyclobenzaprine 10mg Tab] Ibuprofen [Ibuprofen 800mg 800 mg PO Q8HP PRN #30 tab 11/10/21 Tablet] Allergies Allergy/AdvReac Type Severity Reaction Status Date / Time amoxicillin [AMOXICILLIN] Allergy Mild Verified 06/05/21 11:49 corn Allergy Verified 06/05/21 11:49 garlic Allergy Verified 06/05/21 11:49 shellfish derived Allergy Verified 06/05/21 11:49 - Worker's Comp Is this a Worker's Comp case?: No [facility] History - Hepatitis A Scre
[2021-11-10 18:36] LABS: UTC Strep Screen (Rapid) Negative (Negative)
[2021-11-10 18:47] VITALS: BP 123/76; PULSE 63; RESP 14; TEMP 37.1
== END 2021-11-10 18:48 | disposition home or self-care (01) ==
PROVIDERS: Emergency Provider Nurse Practitioner Family
DX: R68.84 Jaw pain (principal); F41.8 Other specified anxiety disorders; E11.9 Type 2 diabetes mellitus without complications; K21.9 Gastro-esophageal reflux disease without esophagitis; Z88.1 Allergy status to other antibiotic agents
CPT/HCPCS: 87880; 99203; G0463

== ENCOUNTER 2022-06-07 12:24 | Emergency (ER) | payer OTHER, SELFPAY ==
[2022-06-07 12:40] VITALS: BP 129/66; PULSE 129; RESP 19; TEMP 36.7; O2SAT 98; BMI 22.8
[2022-06-07 12:58] LABS: UTC Strep Screen (Rapid) Negative (Negative)
--- NOTE | 2022-06-07 13:08 | HMH.EDUTC ---
[facility] [place] Impression: Viral syndrome Disposition: Home, Self-Care Condition on Discharge: Good Instructions: DI for Viral Syndrome, DI for COVID-19 (Suspected or Confirmed ), Preventing the Spread of Coronavirus Discharge Instructions Additional Instructions: *Monitor Temp, Over the counter Motrin or Tylenol as directed/as needed Tylenol every 4 hours and Motrin every 6 hours (as long as your family doctor has told you that you can take it) for fever or pain. and straight to ER if unable to lower temp less than 101.0 after medication given *Warm salt water gargles may help to soothe the throat *Throat Lozenges *Warm fluids like tea with honey may help to soothe the throat *Sleep elevated *Humidifier/Vaporizer Your throat swab was sent for culture. Those results are typically sent to your primary care. Be sure to follow up in 2-3 days with your family doctor/primary care physician if no improvement so they can review those result and treat if necessary. If you don?t have a primary care doctor, I recommend you get one but in the mean time, you will have to return to a walk in clinic Follow up IMMEDIATELY for new or worsening symptoms or no Noticeable improvement over the next 48-72 hours. 911 for difficulty breathing or swallowing You were tested for today for COVID19 your test result should be back in the next 24-48 hours, you may check your results on the [facility] My Health Portal Make sure to take your Vitamins Vit. C Vit D and Zinc if you can take them Referrals: Provider,Referral, [Primary Care Provider] - As needed Forms: Work/School Release Medical Decision Making - Romain Inquiry Pt receiving controlled substance: No Romain was queried for this patient: No Vital Signs: 06/07/22 12:40 Temperature 98.1 F Temperature Source Oral Pulse Rate [Right Brachial] 129 H Respiratory Rate 19 Blood Pressure [Right Arm] 129/66 Blood Pressure Mean [Right Arm] 87 Blood Pressure Source [Right Arm] Automatic Cuff Blood Pressure Position [Right Arm] Sitting 02 Sat by Pulse Oximetry 98 Oxygen Delivery Method Room Air - Lab Data Lab results reviewed: Yes: I reviewed the patient's lab results. Lab Results 06/07/22 12:33: Strep Scn Rapid Clinic Negative Orders (Tests/Meds): ORDERS Category Date Time Status Covid-19 Nasal PCR ([facility]) Routine Lab 06/07/22 12:36 Received Strep Screen Confirmation Stat Micro 06/07/22 12:33 Received [facility] UTC HPI - General Stated complaint: Headache, nausea, sore throat Time Seen by Provider: 06/07/22 13:08 Mode of Arrival: Ambulatory Source of Information: Patient Limitations: No Limitations Description of Symptoms (Recalled from Triage Doc. by RN): PATIENT C/O SORE THROAT, HEADACHE, STOMACH ACHE, COUGH, AND DECREASED APPETITE SINCE YESTERDAY HEENT Symptoms (Recalled from RN notes): Yes Resp Symptoms (Recalled from RN notes): No Skin Symptoms (Recalled from RN notes): No MS Symptoms (Recalled from RN notes): No Functional Status (Recalled from RN notes): WNL - History of Present Illness Provider Complaint: Patient states that he started feeling bad yesterday States that he has been having headache, sore throat, upset stomach and diarrhea States that he feels like he did when he had COVID before so today when he was still not feeling well he came in to get tested - Related Data Allergies Allergy/AdvReac Type Severity Reaction Status Date / Time amoxicillin [AMOXICILLIN] Allergy Mild Verified 06/05/21 11:49 corn Allergy Verified 06/05/21 11:49 garlic Allergy Verified 06/05/21 11:49 shellfish derived Allergy Verified 06/05/21 11:49 - Worker's Comp Is this a Worker's Comp case?: No [facility] History - Hepatitis A Screen Attestation statement:: This patient has been screened for Hepatitis A risk factors. I have reviewed the patient's past medical history: Yes Medical History: Reports:: Anxiety, Depression, Diabetes Mellitus Type 2, Gastroesophage
[2022-06-07 13:15] VITALS: BP 129/66; PULSE 94; RESP 19; TEMP 36.7; O2SAT 98
== END 2022-06-07 13:20 | disposition home or self-care (01) ==
PROVIDERS: Emergency Provider Nurse Practitioner
DX: B34.9 Viral infection, unspecified (principal)
CPT/HCPCS: 87880; 99212; C9803; G0463; U0003; U0005

== ENCOUNTER 2022-06-10 13:19 | Emergency (ER) | payer OTHER, SELFPAY ==
--- NOTE | 2022-06-10 13:46 | XR_ITS ---
PROCEDURE INFORMATION: Exam: XR Chest Exam date and time: 06/10/2022 1:45 PM Age: 22 years old Clinical indication: Cough and shortness of breath; Additional info: SOB TECHNIQUE: Imaging protocol: Radiologic exam of the chest. Views: 2 views. COMPARISON: CR XR RIBS RT MIN 3V W CXR1V 12/22/2020 12:53 PM FINDINGS: Lungs: Unremarkable. No consolidation. There is no focal mass. Pleural spaces: Unremarkable. No pleural effusion. No pneumothorax. Heart/Mediastinum: Unremarkable. No cardiomegaly. Bones/joints: Unremarkable. There is no acute fracture present. IMPRESSION: No evidence for acute cardiac or pulmonary process.
[2022-06-10 13:58] VITALS: BP 109/79; PULSE 79; RESP 16; TEMP 36.7; O2SAT 99; BMI 25.1
--- NOTE | 2022-06-10 14:48 | HMH.EDUTC ---
[facility] [place] Clinical Impression: Sinusitis Qualifiers: Sinusitis location: unspecified location Chronicity: unspecified Qualified Code(s): J32.9 - Chronic sinusitis, unspecified Disposition: Home, Self-Care Condition on Discharge: Good Instructions: Sinusitis, DI for Sinusitis, Nausea and Vomiting-Adult Additional Instructions: *Monitor Temp, Over the counter Motrin or Tylenol as directed/as needed Tylenol every 4 hours and Motrin every 6 hours (as long as your family doctor has told you that you can take it) for fever or pain. and straight to ER if unable to lower temp less than 101.0 after medication given *Warm salt water gargles may help to soothe the throat *Throat Lozenges *Warm fluids like tea with honey may help to soothe the throat *Sleep elevated *Humidifier/Vaporizer Follow up IMMEDIATELY for new or worsening symptoms or no Noticeable improvement over the next 48-72 hours. 911 for difficulty breathing or swallowing You were tested for today for COVID19 your test result should be back in the next 24-48 hours, you may check your results on the [facility] My Health Portal Make sure to take your Vitamins Vit. C Vit D and Zinc if you can take them Prescriptions: Azithromycin [Z-Abdulaziz 250mg Tab] 250 mg PO DIRECTED #6 tab Transmission Status: Pending to [facility] Ondansetron [Zofran 4mg ODT] 4 mg PO TIDP PRN #10 tab PRN Reason: Vomiting Transmission Status: Pending to [facility] Referrals: Provider,Referral, MD [Primary Care Provider] - As needed Time of Disposition: 14:55 Medical Decision Making - Romain Inquiry Pt receiving controlled substance: No Romain was queried for this patient: No Vital Signs: 06/10/22 13:58 Temperature 98.0 F Temperature Source Oral Pulse Rate [Left] 79 Respiratory Rate 16 Blood Pressure [Right Arm] 109/79 L Blood Pressure Mean [Right Arm] 89 02 Sat by Pulse Oximetry 99 - Radiology Data #1 Image(s): Chest Image Reviewed: Yes I have reviewed radiologist's interpretation IMPRESSION: No evidence for acute cardiac or pulmonary process. [facility] [place] HPI - General Stated complaint: head congestion v/d Time Seen by Provider: 06/10/22 14:48 Mode of Arrival: Ambulatory Source of Information: Patient Limitations: No Limitations Description of Symptoms (Recalled from Triage Doc. by RN): patient comes in with complaints of cough, headache, nausea, vomitting, body aches, chest tightness. patient states that he was here this past was given no medicine but covid and strep were negative. HEENT Symptoms (Recalled from RN notes): Yes Resp Symptoms (Recalled from RN notes): Yes Skin Symptoms (Recalled from RN notes): No MS Symptoms (Recalled from RN notes): No Functional Status (Recalled from RN notes): n/a - History of Present Illness Provider Complaint: Patient states that he has been having sinus congestion and pressure, cough and N/V States that he was seen on and tested for strep and COVID but it was negative States that he has not got any better and still having symptoms and feels like it is trying to move into his chest area so he came back in to get checked out - Related Data Previous Rx's Medication Instructions Recorded Azithromycin [Z-Abdulaziz 250mg Tab] 250 mg PO DIRECTED #6 tab 06/10/22 Ondansetron [Zofran 4mg ODT] 4 mg PO TIDP PRN #10 tab 06/10/22 Allergies Allergy/AdvReac Type Severity Reaction Status Date / Time amoxicillin [AMOXICILLIN] Allergy Mild Verified 06/10/22 14:04 corn Allergy Verified 06/10/22 14:04 garlic Allergy Verified 06/10/22 14:04 shellfish derived Allergy Verified 06/10/22 14:04 - Worker's Comp Is this a Worker's Comp case?: No [facility] History - Hepatitis A Screen Attestation statement:: This patient has been screened for Hepatitis A risk factors. I have reviewed the patient's past medical history: Yes Medical History: Reports:: Anxiety, Depression, Diabetes Mellit
[2022-06-10 15:06] VITALS: BP 109/79; PULSE 79; RESP 16; TEMP 36.7
== END 2022-06-10 15:11 | disposition home or self-care (01) ==
PROVIDERS: Emergency Provider Nurse Practitioner
DX: J32.9 Chronic sinusitis, unspecified (principal)
CPT/HCPCS: 71046; 99212; C9803; G0463; U0003; U0005

== ENCOUNTER 2022-09-11 13:44 | Emergency (ER) | payer OTHER, SELFPAY ==
--- NOTE | 2022-09-11 15:05 | EXP.UTC ---
Discharge Plan Disposition Patient Disposition: Home, Self-Care Condition: Good Prescriptions Prescriptions: New methylprednisolone 4 mg Tablets,Dose Pack 4 mg PO DIRECTED Qty: 21 0RF prvkfshmjoatrqi-qtbzyvfnt-VN [Bromfed DM] 2-30-10 mg/5 mL Syrup 5 ml PO Q6H PRN (Reason: Cough) Qty: 240 0RF cefdinir 300 mg capsule 300 mg PO BID Qty: 20 0RF No Action azithromycin 250 MG tablet 250 mg PO DIRECTED Qty: 6 0RF Rx Instructions: Take two (2) tablets on day #1, then one (1) tablet day #2 thru #5 ondansetron 4 MG tablet,disintegrating 4 mg PO TIDP PRN (Reason: Vomiting) Qty: 10 0RF Referrals Follow up/Referrals: Provider,Referral, MD [Primary Care Provider] - See instructions Activity Restrictions/Add. Instructions Additional Instructions/Restrictions: Drink plenty of fluids. Take tylenol or ibuprofen for pain or fever. Take the medications as directed. Follow up with your regular doctor. GO TO THE ER FOR ANY WORSENING SYMPTOMS Clinical Impressions Clinical Impression: Acute bronchitis, Acute viral syndrome Stand Alone Forms Stand Alone Forms: Work/School Release Instructions Patient Instructions: DI for Acute Bronchitis, DI for Viral Syndrome Discharge ED Provider: Bola Johnson [facility] General Stated complaint: jones, ba, sore throat Time Seen by Provider: 09/11/22 15:05 History of Present Illness Provider Complaint: He states that since yesterday he has had body aches, chills, n/v, and chest congestion. He has a scratchy sore throat also. Related Data Previous Rx's Medication Instructions Recorded azithromycin 250 mg tablet 250 mg PO DIRECTED #6 tabs 06/10/22 ondansetron 4 mg disintegrating 4 mg PO TIDP PRN Vomiting #10 tabs 06/10/22 tablet gdpldeiffznskoi-nrszsnfxodqqmzh-RU 5 ml PO Q6H PRN Cough #240 mL 09/11/22 2 mg-30 mg-10 mg/5 mL oral syrup (Bromfed DM) cefdinir 300 mg capsule 300 mg PO BID #20 caps 09/11/22 methylprednisolone 4 mg tablets in 4 mg PO DIRECTED #21 tabs 09/11/22 a dose pack Allergies Allergy/AdvReac Type Severity Reaction Status Date / Time amoxicillin [AMOXICILLIN] Allergy Mild Verified 09/11/22 15:18 corn Allergy Verified 09/11/22 15:18 garlic Allergy Verified 09/11/22 15:18 shellfish derived Allergy Verified 09/11/22 15:18 PFSH PFS Social History Smoking Status: Never smoker alcohol intake: never substance use type: denies use current occupational status: other Travel in the last 8 weeks: None ROS Obtained: Yes All systems reviewed & no additional complaints except as documented Constitutional Constitutional: Reports chills and Reports fever(s) Eyes Eyes: Denies eye discharge ENT Ears, Nose, Mouth, and Throat: Reports as per HPI Cardiovascular Cardiovascular: Denies chest pain Respiratory Respiratory: Denies chest congestion and Reports cough Gastrointestinal Gastrointestingal: Reports nausea; Denies abdominal pain, constipation, cramping, diarrhea or vomiting Musculoskeletal Musculoskeletal: Denies arthralgias Integumentary/Breasts Skin/Breast: Denies rash Neurologic Neurologic: Denies paresthesias Physical Exam General General appearance: alert and in no apparent distress Head Head exam: atraumatic, normocephalic and normal inspection Eye Eye exam: Present normal appearance, PERRL and EOMI ENT ENT exam: Present mucous membranes moist and normal external ear exam Expanded ENT Exam TM/Canal exam: Bilateral TM: erythema and bulging Nose exam: Absent sinus tenderness Mouth exam: Present normal external inspection; Absent drooling Teeth exam: Present normal inspection Throat exam: Present tonsillar erythema, tonsillomegaly and tonsillar exudate Neck Neck exam: Present normal inspection, full ROM and trachea midline; Absent tenderness, meningismus or lymphadenopathy Chest Chest inspection: Present normal inspection and symm
[2022-09-11 15:11] VITALS: BP 111/73; PULSE 95; RESP 18; TEMP 36.9; O2SAT 98; BMI 25.1
[2022-09-11 15:19] LABS: UTC Influenza A Antigen Negative (Negative); UTC Influenza B Antigen Negative (Negative)
[2022-09-11 15:37] VITALS: BP 111/73; PULSE 95; RESP 18; TEMP 36.9
[2022-09-11 16:19] LABS: Adenovirus,PCR Not Detected (NotDetected); Bordetella Pertussis Not Detected (NotDetected); Chlamydophila Pneumoniae, PCR Not Detected (NotDetected); Coronavirus 19, PCR Not Detected (NotDetected); Coronavirus 229E Not Detected (NotDetected); Coronavirus NL63 Not Detected (NotDetected); Coronavirus OC43 Not Detected (NotDetected); Coronovirus HKU1,PCR Not Detected (NotDetected); Human Metapneumovirus Not Detected (NotDetected); Influenza A, PCR Not Detected (NotDetected); Influenza AH1, 2009 Not Detected (NotDetected); Influenza AH1, PCR Not Detected (NotDetected); Influenza AH3,PCR Not Detected (NotDetected); Influenza B, PCR Not Detected (NotDetected); Mycoplasma Pneumoniae, PCR Not Detected (NotDetected); Parainfluenza 1, PCR Not Detected (NotDetected); Parainfluenza 2, PCR Not Detected (NotDetected); Parainfluenza 3, PCR Not Detected (NotDetected); Parainfluenza 4, PCR Not Detected (NotDetected); Respiratory Syncytial Virus Not Detected (NotDetected); Rhinovirus/Enterovirus Not Detected (NotDetected)
== END 2022-09-11 15:38 | disposition home or self-care (01) ==
PROVIDERS: Emergency Provider Nurse Practitioner Family
DX: J20.9 Acute bronchitis, unspecified (principal)
CPT/HCPCS: 87581; 87632; 87798; 87804; 99212; C9803; G0463; U0003; U0005

== ENCOUNTER 2022-10-15 12:03 | Emergency (ER) | payer OTHER, SELFPAY ==
[2022-10-15 12:20] VITALS: BP 119/86; PULSE 68; RESP 18; TEMP 36.6; O2SAT 99; BMI 21.3
[2022-10-15 12:44] LABS: UTC Influenza A Antigen Negative (Negative)
[2022-10-15 12:45] LABS: UTC Influenza B Antigen Negative (Negative)
--- NOTE | 2022-10-15 12:45 | EXP.UTC ---
Discharge Plan Disposition Patient Disposition: Home, Self-Care Condition: Good Referrals Follow up/Referrals: Ministerio Matos PA [Primary Care Provider] - See instructions Activity Restrictions/Add. Instructions Additional Instructions/Restrictions: *Monitor Temp, Over the counter Motrin or Tylenol as directed/as needed Tylenol every 4 hours and Motrin every 6 hours (as long as your family doctor has told you that you can take it) for fever or pain. and straight to ER if unable to lower temp less than 101.0 after medication given *Warm salt water gargles may help to soothe the throat *Throat Lozenges? *Warm fluids like tea with honey may help to soothe the throat? *Sleep elevated *Humidifier/Vaporizer Follow up IMMEDIATELY for new or worsening symptoms or no Noticeable improvement over the next 48-72 hours. 911 for difficulty breathing or swallowing You were tested for today for Upper Respiratory Panel with COVID19 your test result should be back in the next 24-48 hours, you may check your Results on the [facility] [employer] Health Portal Clinical Impressions Clinical Impression: Exposure to COVID-19 virus Stand Alone Forms Stand Alone Forms: Work/School Release Instructions Patient Instructions: DI for Viral Syndrome Discharge ED Provider: Gabriella Schreiber [facility] [place] HPI General Stated complaint: Covid test, covid exposure Mode of Arrival: Ambulatory Source of Information: Patient Limitations: No Limitations Time Seen by Provider: 10/15/22 12:45 Description of Symptoms (Recalled from Triage Doc. by RN): PATIENT C/O COUGH AND BODY ACHES SINCE YESTERDAY HEENT Symptoms (Recalled from RN notes): No Resp Symptoms (Recalled from RN notes): Yes Skin Symptoms (Recalled from RN notes): No MS Symptoms (Recalled from RN notes): No Functional Status (Recalled from RN notes): WNL History of Present Illness Provider Complaint: Patient states that he was recently exposed to someone that has COVID states yesterday he started with cough headaches, and feeling achy Statse that he took several at home tests but they was negative but his boss wanted him to come in here and get tested Related Data Allergies Allergy/AdvReac Type Severity Reaction Status Date / Time amoxicillin [AMOXICILLIN] Allergy Mild Verified 09/11/22 15:18 corn Allergy Verified 09/11/22 15:18 garlic Allergy Verified 09/11/22 15:18 shellfish derived Allergy Verified 09/11/22 15:18 Worker's Comp Is this a Worker's Comp case?: No [facility] Disclaimer: The information contained in this section may have been updated after the patient was seen, as this information can be updated by other users. Medical History (Updated 10/15/22 @ 12:51 by Gabriella Schreiber APRN) Diabetes mellitus type 1 Surgical History (Updated 10/15/22 @ 12:31 by Angela Busby RN) History of tonsillectomy History of tympanostomy tube placement Social History (Updated 10/15/22 @ 12:31 by Angela Busby RN) Smoking Status: Never smoker alcohol intake: never substance use type: denies use current occupational status: other Travel in the last 8 weeks: None ROS Obtained: Yes All systems reviewed & no additional complaints except as documented and Yes Systems reviewed as appropriate & no additional complaints except as documented Constitutional Constitutional: Reports system reviewed and no additional complaints, except as documented, Reports as per HPI and Reports body ache Eyes Eyes: Reports system reviewed and no additional complaints, except as documented and Reports as per HPI ENT Ears, Nose, Mouth, and Throat: Reports system reviewed and no additional complaints, except as documented and Reports as per HPI Cardiovascular Cardiovascular: Reports system reviewed and no additional complaints, except as documented and Reports as per HPI Respiratory Respiratory: Reports system reviewed and no additional complaints, except as documented, Reports as per HP
[2022-10-15 12:53] VITALS: BP 119/86; PULSE 68; RESP 18; TEMP 36.6; O2SAT 99
== END 2022-10-15 12:55 | disposition home or self-care (01) ==
PROVIDERS: Emergency Provider Nurse Practitioner; PCP Physician Assistant
DX: Z20.822 Contact with and (suspected) exposure to COVID-19 (principal)
CPT/HCPCS: 87804; 99212; C9803; G0463; U0003; U0005

== ENCOUNTER 2023-01-28 15:55 | Emergency (ER) | payer OTHER, SELFPAY ==
[2023-01-28 16:00] VITALS: BP 100/76; PULSE 100; RESP 20; TEMP 38; O2SAT 97; BMI 24.3
[2023-01-28 16:19] LABS: UTC Strep Screen (Rapid) Negative (Negative)
[2023-01-28 16:20] LABS: UTC Influenza A Antigen Negative (Negative); UTC Influenza B Antigen Negative (Negative)
--- NOTE | 2023-01-28 16:25 | EXP.UTC ---
Discharge Plan Disposition Patient Disposition: Home, Self-Care Condition: Good Prescriptions Prescriptions: New cfuypsosbiiigyx-mtsxhfqvu-JU [Bromfed DM] 2-30-10 mg/5 mL Syrup 5 ml PO Q6H PRN (Reason: Cough) Qty: 240 0RF azithromycin [Zithromax] 250 mg tablet 250 mg PO UD DOSE PK Qty: 6 0RF Rx Instructions: Take two (2) tablets today, then one (1) tablet days #2 thru #5 Referrals Follow up/Referrals: Provider,Referral, MD [Primary Care Provider] - See instructions Activity Restrictions/Add. Instructions Additional Instructions/Restrictions: Drink plenty of fluids. Take tylenol or ibuprofen for pain or fever. Take the medications as directed. Follow up with your regular doctor. GO TO THE ER FOR ANY WORSENING SYMPTOMS Clinical Impressions Clinical Impression: Sinusitis, Pharyngitis Stand Alone Forms Stand Alone Forms: Work/School Release Instructions Patient Instructions: DI for Pharyngitis/Tonsillopharyngitis -- Adult, DI for Sinusitis Discharge ED Provider: Bola Johnson [facility] General Stated complaint: cough,lung pain,SOA,headache Mode of Arrival: Ambulatory Source of Information: Patient Limitations: No Limitations Time Seen by Provider: 01/28/23 16:19 Description of Symptoms (Recalled from Triage Doc. by RN): SORE THROAT, BODY ACHES, CHILLS, COUGH, RUNNY NOSE HEENT Symptoms (Recalled from RN notes): Yes Resp Symptoms (Recalled from RN notes): No Skin Symptoms (Recalled from RN notes): No MS Symptoms (Recalled from RN notes): No Functional Status (Recalled from RN notes): N/A History of Present Illness Provider Complaint: He states that for the past 4 days he has worsening sinus congestion and sore throat. Related Data Previous Rx's Medication Instructions Recorded azithromycin 250 mg tablet 250 mg PO UD DOSE PK #6 tabs 01/28/23 (Zithromax) bkqfepeyztifwgn-bolpmsbpjvossgs-EO 5 ml PO Q6H PRN Cough #240 mL 01/28/23 2 mg-30 mg-10 mg/5 mL oral syrup (Bromfed DM) Allergies Allergy/AdvReac Type Severity Reaction Status Date / Time amoxicillin [AMOXICILLIN] Allergy Mild Verified 01/28/23 16:11 corn Allergy Verified 01/28/23 16:11 garlic Allergy Verified 01/28/23 16:11 shellfish derived Allergy Verified 01/28/23 16:11 Worker's Comp Is this a Worker's Comp case?: No [facility] Disclaimer: The information contained in this section may have been updated after the patient was seen, as this information can be updated by other users. Medical History Diabetes mellitus type 1 Surgical History History of tonsillectomy History of tympanostomy tube placement Social History Smoking Status: Never smoker alcohol intake: never substance use type: denies use current occupational status: other Travel in the last 8 weeks: None ROS Obtained: Yes All systems reviewed & no additional complaints except as documented Constitutional Constitutional: Reports chills and Denies fever(s) Eyes Eyes: Denies eye discharge ENT Ears, Nose, Mouth, and Throat: Reports as per HPI Cardiovascular Cardiovascular: Denies chest pain Respiratory Respiratory: Denies chest congestion and Reports cough Gastrointestinal Gastrointestingal: Reports nausea; Denies abdominal pain, constipation, cramping, diarrhea or vomiting Musculoskeletal Musculoskeletal: Denies arthralgias Integumentary/Breasts Skin/Breast: Denies rash Neurologic Neurologic: Denies paresthesias Physical Exam General General appearance: alert and in no apparent distress Head Head exam: atraumatic, normocephalic and normal inspection Eye Eye exam: Present normal appearance, PERRL and EOMI ENT ENT exam: Present mucous membranes moist and normal external ear exam Expanded ENT Exam TM/Canal exam: Bilateral TM: erythema and bulging Nose exam: Absent
[2023-01-28 17:01] VITALS: BP 100/76; PULSE 100; RESP 20; TEMP 37.3; O2SAT 97
== END 2023-01-28 17:01 | disposition home or self-care (01) ==
PROVIDERS: Emergency Provider Nurse Practitioner Family
DX: J01.90 Acute sinusitis, unspecified (principal); J02.9 Acute pharyngitis, unspecified; R05.1 Acute cough; R50.9 Fever, unspecified
CPT/HCPCS: 87804; 87880; 99212; 99214; G0463

== ENCOUNTER 2023-06-02 15:03 | Day surgery (SDC) | payer OTHER, SELFPAY ==
[2023-06-02] VITALS (10 sets, daily range): BP systolic 112–123; BP diastolic 62–93; PULSE 52–80; RESP 16–20; TEMP 36.8; O2SAT 96–100; BMI 24.3
--- NOTE | 2023-06-02 15:09 | XR_ITS ---
PROCEDURE INFORMATION: Exam: XR Chest Exam date and time: 06/02/2023 3:08 PM Age: 23 years old Clinical indication: Injury or trauma; Other: Possible food bolus TECHNIQUE: Imaging protocol: Radiologic exam of the chest. Views: 1 view. Total images: 1 COMPARISON: CR XR CHEST 2V 06/10/2022 1:45 PM FINDINGS: Lungs: No focal pneumonia or pneumothorax. Pleural spaces: No pleural effusions. Heart/Mediastinum: Unremarkable. No cardiomegaly. Bones/joints: Chronic changes of the distal right clavicle. IMPRESSION: 1. No focal pneumonia or pneumothorax. 2. No pleural effusions.
--- NOTE | 2023-06-02 15:16 | HMH.EDGENADL ---
Discharge Plan Disposition Patient Disposition: Admitted Condition: Fair Clinical Impressions Clinical Impression: Food impaction of esophagus Qualifiers: Encounter type: initial encounter Qualified Code(s): T18.128A - Food in esophagus causing other injury, initial encounter Discharge ED Provider: Espinoza Newton General Adult HPI General Chief complaint: Skin/Abscess/Foreign Body Stated complaint: food stuck in throat Time Seen by Provider: 06/02/23 15:09 History of Present Illness HPI narrative: This is a 23-year-old male with history of multiple esophageal strictures status post numerous balloon dilations (last was about 1 year prior to arrival at [facility]), possible esophageal diverticulum presenting with food bolus. Patient states that about 40 minutes prior to arrival, he was eating chicken when he swallowed a piece and it got stuck. Initially was able to retch and some came out which he almost choked on. He was able to spit that out. Denies aspiration, shortness of breath, or chest pain. Had residual food bolus and was unable to tolerate secretions, so tried cola and jumping. This was unsuccessful. Patient came to the ER for further evaluation. Is having epigastric abdominal pain and intermittent retching. Unable to tolerate saliva, fluids, or any other oral intake. Related Data Previous Rx's Medication Instructions Recorded azithromycin 250 mg tablet 250 mg PO UD DOSE PK #6 tabs 01/28/23 (Zithromax) oszqcweqbamvxbk-wiyftfalvxzzeok-BL 5 ml PO Q6H PRN Cough #240 mL 01/28/23 2 mg-30 mg-10 mg/5 mL oral syrup (Bromfed DM) Allergies Allergy/AdvReac Type Severity Reaction Status Date / Time amoxicillin [AMOXICILLIN] Allergy Mild Verified 01/28/23 16:11 corn Allergy Verified 01/28/23 16:11 garlic Allergy Verified 01/28/23 16:11 shellfish derived Allergy Verified 01/28/23 16:11 [facility] Disclaimer: The information contained in this section may have been updated after the patient was seen, as this information can be updated by other users. Medical History Diabetes mellitus type 1 Surgical History History of tonsillectomy History of tympanostomy tube placement Social History Smoking Status: Never smoker alcohol intake: never substance use type: denies use current occupational status: other Travel in the last 8 weeks: None ROS Obtained: Yes All systems reviewed & no additional complaints except as documented Physical Exam General General appearance: alert, in no apparent distress and other ( ) Head Head exam: atraumatic and normocephalic Eye Eye exam: Present normal appearance, PERRL and EOMI ENT ENT exam: Present mucous membranes moist Neck Neck exam: Present normal inspection, full ROM and trachea midline Respiratory Respiratory exam: Absent respiratory distress, wheezes, stridor, accessory muscle use or prolonged expiratory phase Cardiovascular Cardiovascular exam: Present regular rate and normal rhythm Abdominal Exam Abdominal exam: Present soft and tenderness; Absent distention, guarding, rebound, rigidity or normal bowel sounds Abdominal tenderness: Present epigastrium Comment: Intermittently retching Extremities Exam Extremities exam: Absent edema Neurological Exam Neurological exam: Present alert, oriented X3, CN II-XII intact and normal gait; Absent motor sensory deficit Skin Skin exam: Present warm and dry; Absent diaphoresis or erythema Medical Decision Making Medical Records Medical records reviewed: Yes I reviewed the patient's medical records. Romain Inquiry Pt receiving controlled substance: No Romain was queried for this patient: No Vital Signs: 06/02/23 15:12 06/02/23 15:08 06/02/23 15:30 Temperature 98.2 F Temperature Source Oral Pulse Rate 77 80 Pulse Rate [Left
--- NOTE | 2023-06-02 15:26 | PC.NURSE ---
Dr Newton speaking with Dr De La Rosa
--- NOTE | 2023-06-02 15:26 | PC.NURSE ---
dr rodriguez is speaking to dr damon at this time.
--- NOTE | 2023-06-02 15:31 | PC.NURSE ---
Surgery team paged in at the request of at [phone] Received call backs from Nancy Brown and Vanna by 153.
--- NOTE | 2023-06-02 15:53 | EXP.ANES.CKL ---
[facility] Disclaimer: The information contained in this section may have been updated after the patient was seen, as this information can be updated by other users. Medical History Diabetes mellitus type 1 Surgical History History of tonsillectomy History of tympanostomy tube placement Social History Smoking Status: Never smoker alcohol intake: never substance use type: denies use current occupational status: other Travel in the last 8 weeks: None [facility] Anesthesia Checklist Patient Identification Patient Identification: Arm Band and Verbal (Name & ) Structural Data Admitted From: Home Planned Operative Procedure/s: EGD Consent for Planned Operative Procedure(s) Verified: Yes NPO Status Verified Time NPO: 14:00 Additional verifications Anesthesia Reactions: No Airway Assessment Mallampati Score:: Class I C-Spine Mobility Assessed: Yes TMJ Mobility Assessed: Yes Dentition: Good Dentition Neurological Assessment Level of Consciousness: Awake Hx Seizures: No Numbness or tingling in extremities: No Anesthesia Plan Anesthesia Risk discussed: Yes Anesthesia Plan: Verified ASA Class: II Anesthesia Type: MAC
--- NOTE | 2023-06-02 16:41 | HMH.SCOPE ---
Procedure: Date: 06/02/23 Patient Date of :: 2000 Procedure Performed:: Esophagogastroduodenoscopy Indications:: Esophageal foreign body Performing Provider:: Ab De La Rosa MD Referring Provider:: Emergency department Sedation:: Monitored anesthesia care Procedure:: After informed consent was obtained the patient was taken to the endoscopy suite. Sedation ensued after the patient was transferred to the left lateral decubitus position. Pulse, blood pressure, and oxygen saturation were monitored throughout the procedure. The endoscope was advanced beyond the duodenal bulb. Retroflexion within the gastric lumen was accomplished. The gastroscope was carefully removed and the patient was transferred to recovery in stable condition. Please see findings and specimens below for detail. Findings:: No obvious retained foreign body Large linear ulceration between 23 and 38 cm (seemingly secondary to trauma from foreign body passage) Patchy linear ulcerations just proximal to the gastroesophageal junction (also seemingly secondary to trauma from foreign body passage) Mild Schatzki ring Recommendations:: The patient and his family are aware of findings and increased risk of esophageal perforation Further evaluation and management to be discussed at follow-up appointment Complications:: No immediate Estimated blood obtained (mL): 0 Colonoscopy Component Colonoscopy Component Was a colonoscopy performed during today's procedure?: No
== END 2023-06-02 18:00 | disposition home or self-care (01) ==
LOC: ER 16:12 → SDC 16:15
PROVIDERS: Emergency Provider Emergency Medicine; PCP Physician Assistant; Visit Provider Surgery
PROC: 0DJ08ZZ Inspection of Upper Intestinal Tract, Via Natural or Artificial Opening Endoscopic (ICD-10-PCS; CPT 43235; principal; 2023-06-02 16:00)
DX: K22.2 Esophageal obstruction (principal); K22.10 Ulcer of esophagus without bleeding
CPT/HCPCS: 43235; 71045; J2405

== ENCOUNTER → 2023-08-12 08:09 | Outpatient (CLI) | payer OTHER, SELFPAY ==
--- NOTE | 2023-08-12 08:09 | FL_ITS ---
FINAL REPORT CLINICAL HISTORY: EOE ft 1.18 min dap- 313.85 FINDINGS: ESOPHAGRAM HISTORY: Dysphagia PROCEDURE: The patient ingested barium. Effervescent crystals were also administered. 10 radiographswere obtained. Fluoro time: 1 minute 18 seconds DAP: 313.85 uGy.m2 FINDINGS: The esophagus is normal. There is no hiatal hernia. There is no gastroesophageal reflux. Peristalsis is normal. A 13 mm barium tablet passed through the esophagus and into the stomach without delay. IMPRESSION: Normal esophagram. Films reviewed , interpreted and dictated by Dr. Olea. Transcribed by Jose Bhatt PA-C. Reviewed, Interpreted and Dictated by Mary Jane Olea MD Transcribed by VIRIDIANA Mcclain Authenticated and [facility]
== END ==
PROVIDERS: PCP Physician Assistant; Visit Provider Surgery
DX: T18.128A Food in esophagus causing other injury, initial encounter (principal)
CPT/HCPCS: 74220

== ENCOUNTER 2023-09-29 13:44 | Emergency (ER) | payer OTHER, SELFPAY ==
--- NOTE | 2023-09-29 13:57 | XR_ITS ---
PROCEDURE INFORMATION: Exam: XR Right Shoulder Exam date and time: 09/29/2023 1:54 PM Age: 23 years old Clinical indication: Injury or trauma; Fall; Blunt trauma (contusions or hematomas); Shoulder; Right; Additional info: Pain TECHNIQUE: Imaging protocol: Radiologic exam of the right shoulder. Views: 2 or more views. Total images: 3 COMPARISON: CR XR SHOULDER RT MIN 2V 07/26/2019 4:49 PM FINDINGS: Bones/joints: Old fracture of the distal aspect of the right clavicle, similar in appearance to the prior study. No evidence of acute fracture. No evidence of acute dislocation. Soft tissues: Normal. IMPRESSION: 1. Old fracture of the distal aspect of the right clavicle, similar in appearance to the prior study. 2. No evidence of acute fracture. 3. No evidence of acute dislocation.
--- NOTE | 2023-09-29 13:57 | XR_ITS ---
PROCEDURE INFORMATION: Exam: XR Right Clavicle, Complete Exam date and time: 09/29/2023 1:57 PM Age: 23 years old Clinical indication: Injury or trauma; Fall; Blunt trauma (contusions or hematomas); Shoulder; Right; Additional info: Pain TECHNIQUE: Imaging protocol: Radiologic exam of the right clavicle. Complete exam. Views: Any number of views. Total images: 2 COMPARISON: CR XR CLAVICLE RT 07/26/2019 4:55 PM FINDINGS: Bones/joints: Old fracture of the distal aspect of the clavicle with separation of the fracture fragments. No evidence of acute fracture. No evidence of acute dislocation. Soft tissues: No soft tissue swelling. IMPRESSION: 1. Old fracture of the distal aspect of the clavicle with separation of the fracture fragments. 2. No evidence of acute fracture. 3. No evidence of acute dislocation.
[2023-09-29 14:00] VITALS: BP 127/87; PULSE 77; RESP 18; TEMP 36.8; O2SAT 99; BMI 25.7
--- NOTE | 2023-09-29 14:06 | EXP.UTC ---
Discharge Plan Disposition Patient Disposition: Home, Self-Care Condition: Good Prescriptions Prescriptions: New ibuprofen [IBU] 800 mg tablet 800 mg PO Q8HP PRN (Reason: Moderate Pain) Qty: 30 0RF No Action fluticasone propionate [Flovent HFA] 110 mcg/actuation HFA aerosol inhaler inhalation pantoprazole 40 mg tablet,delayed release (DR/EC) 40 mg PO DAILY Qty: 30 2RF Referrals Follow up/Referrals: Dwaine Carmona DO [Staff Physician] - See instructions Ministerio Matos PA [Primary Care Provider] - See instructions Activity Restrictions/Add. Instructions Additional Instructions/Restrictions: Rest the extremity. Take ibuprofen for pain. I sent in a prescription to your pharmacy. Follow up with Dr. Carmona (orthopedics). I put in a referral but you need to call his office and schedule an appointment. Follow up with your regular doctor. GO TO THE ER FOR ANY WORSENING SYMPTOMS Clinical Impressions Clinical Impression: Tendinopathy of right shoulder, Pain of right scapula Stand Alone Forms Stand Alone Forms: Work/School Release Instructions Patient Instructions: Shoulder Tendinopathy, DI for Shoulder Pain Discharge ED Provider: Bola Johnson [facility] General Stated complaint: [id number] right shoulder pain, home accident Time Seen by Provider: 09/29/23 14:06 History of Present Illness Provider Complaint: He states that he fell and bumped his right shoulder on the fall last night. He states that initially it did not hurt, but since he woke up this morning he has had right shoulder pain. His pain is worse with raising the arm over his head. He denies any other injury. Related Data Home Medications Medication Instructions Recorded Confirmed fluticasone propionate 110 inhalation 06/12/23 06/12/23 mcg/actuation HFA aerosol inhaler (Flovent HFA) Previous Rx's Medication Instructions Recorded pantoprazole 40 mg tablet,delayed 40 mg PO DAILY #30 tabs 07/11/23 release ibuprofen 800 mg tablet (IBU) 800 mg PO Q8HP PRN Moderate Pain 09/29/23 #30 tabs Allergies Allergy/AdvReac Type Severity Reaction Status Date / Time amoxicillin [AMOXICILLIN] Allergy Mild Verified 06/12/23 08:54 corn Allergy Verified 06/12/23 08:54 garlic Allergy Verified 06/12/23 08:54 shellfish derived Allergy Verified 06/12/23 08:54 [facility] Disclaimer: The information contained in this section may have been updated after the patient was seen, as this information can be updated by other users. Medical History (Updated 09/29/23 @ 15:11 by Bola Johnson APRN) Diabetes mellitus type 1 Surgical History (Updated 06/12/23 @ 08:55 by ARA Farris) History of esophagogastroduodenoscopy (EGD) History of tonsillectomy History of tympanostomy tube placement Social History Smoking Status: Never smoker alcohol intake: never substance use type: denies use current occupational status: other Travel in the last 8 weeks: None ROS Obtained: Yes All systems reviewed & no additional complaints except as documented Constitutional Constitutional: Denies chills and Denies fever(s) Eyes Eyes: Denies eye discharge ENT Ears, Nose, Mouth, and Throat: Denies dizziness, Denies otalgia, Denies neck pain and Denies sore throat Cardiovascular Cardiovascular: Denies chest pain Respiratory Respiratory: Denies shortness of breath, Denies chest congestion, Denies cough, Denies stridor and Denies wheezing Gastrointestinal Gastrointestingal: Denies nausea or vomiting Musculoskeletal Musculoskeletal: Reports as per HPI and Denies neck pain Integumentary/Breasts Skin/Breast: Denies rash Neurologic Neurologic: Denies dizziness and Denies paresthesias Allergic/Immunologic Allergic/Immunologic: Denies wheezing Physical Exam General General appearance: alert and in no apparent distress Head Head exam: atraumatic
[2023-09-29 15:21] VITALS: BP 127/87; PULSE 77; RESP 18; TEMP 36.8; O2SAT 99
== END 2023-09-29 15:21 | disposition home or self-care (01) ==
PROVIDERS: Emergency Provider Nurse Practitioner Family; PCP Physician Assistant
DX: M67.911 Unspecified disorder of synovium and tendon, right shoulder (principal); M89.8X1 Other specified disorders of bone, shoulder; W19.XXXA Unspecified fall, initial encounter
CPT/HCPCS: 73000; 73030; 99212; 99214; G0463

== ENCOUNTER 2023-12-26 12:26 | Emergency (ER) | payer BC, OTHER, SELFPAY ==
[2023-12-26 12:40] VITALS: BP 163/89; PULSE 111; RESP 22; TEMP 37.9; O2SAT 98; BMI 24.8
--- NOTE | 2023-12-26 13:17 | ED_ITS ---
Discharge Plan Disposition Patient Disposition: Home, Self-Care Condition: Good Prescriptions Prescriptions: New azithromycin [Zithromax] 250 mg tablet 250 mg PO UD DOSE PK Qty: 6 0RF Rx Instructions: Take two (2) tablets today, then one (1) tablet days #2 thru #5 oseltamivir [Tamiflu] 75 mg capsule 75 mg PO BID Qty: 10 0RF methylprednisolone 4 mg Tablets,Dose Pack 4 mg PO DIRECTED 6 Days Qty: 21 0RF Rx Instructions: Take 1 pack as directed for 6 days kvvihnxxlidkmju-tkaxsmhtc-SH [Bromfed DM] 2-30-10 mg/5 mL Syrup 5 ml PO Q6H PRN (Reason: Cough) Qty: 240 0RF guaifenesin [Mucinex] 600 mg tablet extended release 12hr 600 - 1,200 mg PO BIDP PRN (Reason: Congestion) Qty: 30 0RF ciprofloxacin HCl 0.3 % drops See Rx Instructions .ROUTE .COMPLEX Qty: 5 0RF Rx Instructions: put 1 drp in both eyes every 2hr x2days; then 4 times/day x5days No Action pantoprazole 40 mg tablet,delayed release (DR/EC) 40 mg PO DAILY Qty: 30 2RF Referrals Follow up/Referrals: Princess Willard APRN [Primary Care Provider] - See instructions Activity Restrictions/Add. Instructions Additional Instructions/Restrictions: Drink plenty of fluids. Take tylenol or ibuprofen for pain or fever. Take the medications as directed. Follow up with your regular doctor. GO TO THE ER FOR ANY WORSENING SYMPTOMS Clinical Impressions Clinical Impression: Influenza A, Acute bronchitis, Conjunctivitis Stand Alone Forms Stand Alone Forms: Work/School Release Instructions Patient Instructions: Influenza, DI for Acute Bronchitis, DI for Influenza -- Adult, Oseltamivir Discharge ED Provider: Bola Johnson [facility] General Stated complaint: chills, body aches, headache, sore throat, fever Mode of Arrival: Ambulatory Source of Information: Patient Limitations: No Limitations Time Seen by Provider: 12/26/23 13:16 Description of Symptoms (Recalled from Triage Doc. by RN): PATIENT C/O FEVER, CHILLS, HEADACHE, COUGH, RED EYES, STOMACH ACHE, BACK ACHE AND SORE THROAT SINCE SATURDAY NIGHT HEENT Symptoms (Recalled from RN notes): Yes Resp Symptoms (Recalled from RN notes): Yes Skin Symptoms (Recalled from RN notes): No MS Symptoms (Recalled from RN notes): No Functional Status (Recalled from RN notes): WNL History of Present Illness Provider Complaint: He states that for the past 2 days he has had fever, chills, body aches, malaise, sore throat and cough. Related Data Previous Rx's Medication Instructions Recorded pantoprazole 40 mg tablet,delayed 40 mg PO DAILY #30 tabs 07/11/23 release azithromycin 250 mg tablet 250 mg PO UD DOSE PK #6 tabs 12/26/23 (Zithromax) lwcrvxpoqnpiyno-hnamlojknedtxfd-CD 5 ml PO Q6H PRN Cough #240 mL 12/26/23 2 mg-30 mg-10 mg/5 mL oral syrup (Bromfed DM) ciprofloxacin HCl 0.3 % eye drops See Rx Instructions ophthalmic 12/26/23 (eye) .COMPLEX #5 mL guaifenesin 600 mg tablet, 600 - 1,200 mg PO BIDP PRN 12/26/23 extended release 12 hr (Mucinex) Congestion #30 tabs methylprednisolone 4 mg tablets in 4 mg PO DIRECTED 6 days #21 tabs 12/26/23 a dose pack oseltamivir 75 mg capsule (Tamiflu) 75 mg PO BID #10 caps 12/26/23 Allergies Allergy/AdvReac Type Severity Reaction Status Date / Time amoxicillin [AMOXICILLIN] Allergy Mild Verified 11/21/23 14:22 corn Allergy Verified 11/21/23 14:22 garlic Allergy Verified 11/21/23 14:22 shellfish derived Allergy Verified 11/21/23 14:22 Worker's Comp Is this a Worker's Comp case?: No [facility] Disclaimer: The information contained in this section may have been updated after the patient was seen, as this information can be updated by other users. Medical History Diabetes mellitus type 1 Surgical History History of esophagogastroduodenoscopy (EGD) History of tonsillectomy History of tympanostomy tube placement Social History Smoking Status: Never smoker alcohol intake: never substance use type: denies use current occupational status: other Travel in the last 8 weeks: None ROS Obtained: Yes All systems reviewed & no additional complaints except as documented Constitutional Constitutional: Reports chills and Reports fever(s) Eyes Eyes: Denies eye discharge ENT Ears, Nose, Mouth, and Throat: Reports as per HPI Cardiovascular Cardiovascular: Denies chest pain Respiratory Respiratory: Denies chest congestion and Reports cough Gastrointestinal Gastrointestingal: Reports nausea; Denies abdominal pain, constipation, cramping, diarrhea or vomiting Musculoskeletal Musculoskeletal: Denies arthralgias Integumentary/Breasts Skin/Breast: Denies rash Neurologic Neurologic: Denies paresthesias Physical Exam General General appearance: alert and in no apparent distress Eye Eye exam: Present normal appearance, PERRL and EOMI ENT ENT exam: Present mucous membranes moist and normal external ear exam Expanded ENT Exam External ear exam: Present normal external inspection TM/Canal exam: Bilateral TM: erythema and bulging Nose exam: Absent sinus tenderness Nasal speculum exam: Bilateral: normal Mouth exam: Present normal external inspection; Absent drooling Teeth exam: Present normal inspection Throat exam: Present tonsillar erythema and tonsillomegaly Neck Neck exam: Present normal inspection, full ROM and trachea midline; Absent tenderness, lymphadenopathy or thyromegaly Chest Chest inspection: Present normal inspection and symmetric chest wall rise; Absent tenderness or rash Respiratory Respiratory exam: Present normal lung sounds bilaterally; Absent respiratory distress, wheezes, stridor or accessory muscle use Cardiovascular Cardiovascular exam: Present regular rate, normal rhythm and normal heart sounds Abdominal Exam Abdominal exam: Present soft; Absent distention, tenderness, guarding, rebound or rigidity Extremities Exam Extremities exam: Present normal inspection, full ROM and normal capillary refill; Absent tenderness or calf tenderness Back Exam Back exam: Present normal inspection and full ROM; Absent tenderness Neurological Exam Neurological exam: Present alert and oriented X3 Psychiatric Psychiatric exam: Present normal affect and normal mood Skin Skin exam: Present warm, dry, intact and normal color Lymphatic Lymphatic Findings: no adenopathy Medical Decision Making Medical Records Medical records reviewed: No I reviewed the patient's medical records. Romain Inquiry Pt receiving controlled substance: No Vital Signs: 12/26/23 12:40 Temperature 100.2 F H Temperature Source Oral Pulse Rate [Right Brachial] 111 H Respiratory Rate 22 Blood Pressure [Right Arm] 163/89 H Blood Pressure Mean [Right Arm] 113 Blood Pressure Source [Right Arm] Automatic Cuff Blood Pressure Position [Right Arm] Sitting 02 Sat by Pulse Oximetry 98 Oxygen Delivery Method Room Air Lab Data Lab results reviewed: Yes I reviewed the patient's lab results.
[2023-12-26 13:48] LABS: UTC Strep Screen (Rapid) Negative (Negative)
[2023-12-26 13:49] VITALS: BP 163/89; PULSE 111; RESP 22; TEMP 37.9; O2SAT 98
[2023-12-26 13:49] LABS: UTC Influenza A Antigen Positive (Negative); UTC Influenza B Antigen Negative (Negative)
== END 2023-12-26 14:01 | disposition home or self-care (01) ==
PROVIDERS: Emergency Provider Nurse Practitioner Family; PCP Nurse Practitioner Family
DX: J10.1 Influenza due to other identified influenza virus with other respiratory manifestations (principal); J20.9 Acute bronchitis, unspecified; H10.33 Unspecified acute conjunctivitis, bilateral; R50.9 Fever, unspecified; R51.9 Headache, unspecified; R05.9 Cough, unspecified
CPT/HCPCS: 87804; 87880; 99212; 99214; G0463

== ENCOUNTER 2024-03-29 12:13 | Emergency (ER) | payer OTHER, SELFPAY ==
[2024-03-29 12:20] VITALS: BP 97/64; PULSE 65; RESP 18; TEMP 36.9; O2SAT 100; BMI 25.1
--- NOTE | 2024-03-29 12:51 | ED_ITS ---
Discharge Plan Referrals Follow up/Referrals: Princess Willard APRN [Primary Care Provider] - See instructions Discharge ED Provider: Bola Johnson [facility] General Stated complaint: rash on arms/face/legs Mode of Arrival: Ambulatory Source of Information: Patient Limitations: No Limitations Time Seen by Provider: 03/29/24 12:51 Description of Symptoms (Recalled from Triage Doc. by RN): Pt's symptoms are he has poision jess rash. HEENT Symptoms (Recalled from RN notes): No Resp Symptoms (Recalled from RN notes): No Skin Symptoms (Recalled from RN notes): Yes MS Symptoms (Recalled from RN notes): No Functional Status (Recalled from RN notes): n/a History of Present Illness Provider Complaint: He states that for the past 3 days he has had a progressively worsening itching rash. He states that he has been exposed to poison jess. Related Data Allergies Allergy/AdvReac Type Severity Reaction Status Date / Time amoxicillin [AMOXICILLIN] Allergy Mild Verified 03/29/24 12:30 corn Allergy Verified 03/29/24 12:30 garlic Allergy Verified 03/29/24 12:30 shellfish derived Allergy Verified 03/29/24 12:30 Worker's Comp Is this a Worker's Comp case?: No [facility] Disclaimer: The information contained in this section may have been updated after the patient was seen, as this information can be updated by other users. Medical History Diabetes mellitus Surgical History History of shoulder surgery History of esophagogastroduodenoscopy (EGD) History of tympanostomy tube placement History of tonsillectomy Family History Grandmother Coronary artery disease Heart attack Diabetes Hypertension Social History Smoking Status: Never smoker second hand exposure: No alcohol intake: current alcohol intake frequency: holidays/special occasions only substance use type: denies use current occupational status: employed Travel in the last 8 weeks: None household members: significant other housing: house marital status: single ROS Obtained: Yes All systems reviewed & no additional complaints except as documented Constitutional Constitutional: Denies chills and Denies fever(s) Eyes Eyes: Denies eye discharge ENT Ears, Nose, Mouth, and Throat: Denies dizziness, Denies otalgia and Denies sore throat Cardiovascular Cardiovascular: Denies chest pain Respiratory Respiratory: Denies shortness of breath, Denies chest congestion, Denies cough, Denies stridor and Denies wheezing Gastrointestinal Gastrointestingal: Denies nausea or vomiting Musculoskeletal Musculoskeletal: Reports system reviewed and no additional complaints, except as documented and Denies arthralgias Integumentary/Breasts Skin/Breast: Reports as per HPI and Reports rash Neurologic Neurologic: Denies dizziness and Denies paresthesias Allergic/Immunologic Allergic/Immunologic: Denies wheezing Physical Exam General General appearance: alert and in no apparent distress Head Head exam: atraumatic, normocephalic and normal inspection Eye Eye exam: Present normal appearance, PERRL and EOMI ENT ENT exam: Present normal exam, normal oropharynx, mucous membranes moist, TM's normal bilaterally and normal external ear exam Neck Neck exam: Present normal inspection, full ROM and trachea midline; Absent meningismus or lymphadenopathy Chest Chest inspection: Present normal inspection and symmetric chest wall rise; Absent tenderness Respiratory Respiratory exam: Present normal lung sounds bilaterally; Absent respiratory dis tress Cardiovascular Cardiovascular exam: Present regular rate and normal rhythm; Absent JVD Abdominal Exam Abdominal exam: Present soft and normal bowel sounds; Absent distention, tenderness or guarding Extremities Exam Extremities exam: Present normal inspection, full ROM and normal capillary refill; Absent calf tenderness Back Exam Back exam: Present normal inspection; Absent tenderness Neurological Exam Neurological exam: Present alert and oriented X3 Psychiatric Psychiatric exam: Present normal affect and normal mood Skin Skin exam: Present rash Lymphatic Lymphatic Findings: no adenopathy Medical Decision Making Medical Records Medical records reviewed: No I reviewed the patient's medical records. Romain Inquiry Pt receiving controlled substance: No Vital Signs: 03/29/24 12:20 Temperature 98.4 F Temperature Source Oral Pulse Rate [Right Radial] 65 Respiratory Rate 18 Blood Pressure [Right Arm] 97/64 L Blood Pressure Mean [Right Arm] 75 Blood Pressure Source [Right Arm] Automatic Cuff Blood Pressure Position [Right Arm] Sitting 02 Sat by Pulse Oximetry 100 Oxygen Delivery Method Room Air
[2024-03-29] MEDS: DEXAMETHASONE 4MG/ML 1ML VIAL 8 MG IM (13:05)
[2024-03-29 13:30] VITALS: BP 97/64; PULSE 65; RESP 18; TEMP 36.9; O2SAT 100
== END 2024-03-29 13:30 | disposition home or self-care (01) ==
PROVIDERS: Emergency Provider Nurse Practitioner Family; PCP Nurse Practitioner Family
DX: L23.7 Allergic contact dermatitis due to plants, except food (principal); W60.XXXA Contact with nonvenomous plant thorns and spines and sharp leaves, initial encounter
CPT/HCPCS: 96372; 99212; 99214; G0463

== ENCOUNTER 2024-04-05 21:50 | Emergency (ER) | payer OTHER, SELFPAY ==
--- NOTE | 2024-04-05 21:57 | ED_ITS ---
<Statement entered by Meka Lua DO - 04/05/24 23:18> I was consulted by the ENDER, and we discussed the complexity of the problems being addressed. I approved the treatment and management plan for this patient's care in the emergency department, thus performing a substantive portion of the medical decision making. Meka Lua DO Discharge Plan Disposition Patient Disposition: Home, Self-Care Condition: Good Prescriptions Prescriptions: New oxycodone 5 mg tablet 5 mg PO Q8H PRN (Reason: pain) Qty: 12 0RF No Action triamcinolone acetonide 0.1 % cream 1 applic topical BID PRN (Reason: itching) Qty: 30 0RF diphenhydramine HCl 25 mg capsule 25 mg PO Q6HP PRN (Reason: Itching) Qty: 30 0RF methylprednisolone 4 mg Tablets,Dose Pack 4 mg PO DIRECTED 6 Days Qty: 21 0RF Rx Instructions: Take 1 pack as directed for 6 days Referrals Follow up/Referrals: Princess Willard APRN [Primary Care Provider] - See instructions Dwaine Carmona DO [Staff Physician] - See instructions (Fall with significant joint effusion) Activity Restrictions/Add. Instructions Additional Instructions/Restrictions: Where your knee immobilizer and use crutches. May alternate Tylenol and Motrin every 4 hours as needed for pain as well as ice the joint. Prescriptions been sent to your pharmacy for stronger pain medication. Please call in the morning and schedule your appointment with orthopedics. Clinical Impressions Clinical Impression: Injury of knee, right Qualifiers: Encounter type: initial encounter Qualified Code(s): S89.91XA - Unspecified injury of right lower leg, initial encounter Stand Alone Forms Stand Alone Forms: Work/School Release Instructions Patient Instructions: DI for Knee Sprain Discharge ED Provider: Meka Lua General Adult HPI <VIRIDIANA Shook - Last Filed: 04/05/24 22:46> General Chief complaint: Extremity Injury, Lower Stated complaint: AO 04/05/24 2100 Injury Right knee Time Seen by Provider: 04/05/24 21:57 History of Present Illness HPI narrative: Patient presents for evaluation of right lower extremity injury. Patient was caring a tote down the stairs when he tripped and fell falling on his knee. Patient reports no other injury elsewhere but was unable to bear weight or walk on it immediately after nor now in the ER. Patient also reports that with extension he occasionally feels his lower extremity go numb . He did not lose consciousness did not strike his head. Related Data Previous Rx's Medication Instructions Recorded diphenhydramine HCl 25 mg capsule 25 mg PO Q6HP PRN Itching #30 caps 03/29/24 methylprednisolone 4 mg tablets in 4 mg PO DIRECTED 6 days #21 tabs 03/29/24 a dose pack triamcinolone acetonide 0.1 % 1 applic topical BID PRN itching 03/29/24 topical cream #30 grams oxycodone 5 mg tablet 5 mg PO Q8H PRN pain #12 tabs 04/05/24 Allergies Allergy/AdvReac Type Severity Reaction Status Date / Time amoxicillin [AMOXICILLIN] Allergy Mild Verified 04/05/24 22:09 corn Allergy Verified 04/05/24 22:09 garlic Allergy Verified 04/05/24 22:09 shellfish derived Allergy Verified 04/05/24 22:09 PFSH <VIRIDIANA Shook - Last Filed: 04/05/24 22:46> [facility] Disclaimer: The information contained in this section may have been updated after the patient was seen, as this information can be updated by other users. Medical History Diabetes mellitus Surgical History History of shoulder surgery History of esophagogastroduodenoscopy (EGD) History of tympanostomy tube placement History of tonsillectomy Family History Grandmother Coronary artery disease Heart attack Diabetes Hypertension Social History Smoking Status: Never smoker second hand exposure: No alcohol intake: current alcohol intake frequency: holidays/special occasions only substance use type: denies use current occupational status: employed Travel in the last 8 weeks: None household members: significant other housing: house marital status: single <VIRIDIANA Shook - Last Filed: 04/05/24 22:46> ROS Obtained: Yes Systems reviewed as appropriate & no additional complaints except as documented Physical Exam <VIRIDIANA Shook - Last Filed: 04/05/24 22:46> General General appearance: alert and in no apparent distress Eye Eye exam: Present normal appearance and PERRL ENT ENT exam: Present normal exam Neck Neck exam: Present normal inspection and full ROM Chest Chest inspection: Present normal inspection Respiratory Respiratory exam: Present normal lung sounds bilaterally and accessory muscle use Cardiovascular Cardiovascular exam: Present regular rate and normal rhythm Abdominal Exam Abdominal exam: Present soft; Absent tenderness Extremities Exam Extremities exam: Present full ROM Expanded Lower Extremity Exam Right: Hip/Pelvis exam: Present normal inspection and full ROM; Absent tenderness Upper leg exam: Present normal inspection and full ROM; Absent tenderness Knee exam: Present tenderness, swelling and erythema; Absent normal inspection, full ROM, deformity or crepitus Lower leg exam: Present normal inspection, full ROM and Achilles tendon intact; Absent tenderness, swelling or dislocation Ankle exam: Present normal inspection and full ROM; Absent tenderness Foot/toe exam: Present normal inspection and full ROM; Absent tenderness Back Exam Back exam: Present normal inspection and full ROM; Absent tenderness Neurological Exam Neurological exam: Present alert, oriented X3 and CN II-XII intact Medical Decision Making <VIRIDIANA Shook - Last Filed: 04/05/24 22:46> Romain Inquiry Pt receiving controlled substance: No Vital Signs: 04/05/24 22:02 04/05/24 23:04 Temperature 98.3 F 97.9 F Temperature Source Oral Pulse Rate 62 Pulse Rate [Left] 59 L Respiratory Rate 18 16 Blood Pressure 110/57 L Blood Pressure [Right Arm] 136/79 Blood Pressure Mean [Right Arm] 98 Blood Pressure Source [Right Arm] Automatic Cuff Blood Pressure Position [Right Arm] Sitting 02 Sat by Pulse Oximetry 100 Oxygen Delivery Method Room Air Room Air Orders (Tests/Meds): ED MEDICATIONS Discontinued Medications Generic Name Dose Route Start Last Admin Trade Name Freq PRN Reason Stop Dose Admin Acetaminophen 1,000 mg 04/05/24 22:00 04/05/24 22:07 Acetaminophen 1,000mg/100ml Vial IV 04/05/24 22:01 1,000 mg ONCE ONE Administration Ketorolac Tromethamine 15 mg 04/05/24 22:00 04/05/24 22:08 Ketorolac 30mg/Ml Vial IV 04/05/24 22:01 15 mg ONCE ONE Administration Oxycodone HCl 5 mg 04/05/24 22:00 04/05/24 22:08 Oxycodone 5mg Immediate Release Tablet PO 04/05/24 22:01 5 mg ONCE ONE Administration ORDERS Category Date Time Status Femur XR right 2 views [XR femur RT 2V] Stat Exams 04/05/24 22:00 Taken Knee XR right 3 views [XR knee RT 3V] Stat Exams 04/05/24 22:00 Taken Tibia/fibula XR right 2 views [XR tibia fibula RT 2V] Exams 04/05/24 22:00 Taken Stat Medical Decision Narrative: In summary patient is a 4-year-old male who presents to the emergency department for evaluation of right knee injury. Patient is dynamically stable upon arrival, afebrile. Physical exam is remarkable for a very red swollen right knee is very tender to palpation with limited range of motion due to pain. Patient is neurovascular intact distally. No palpable deformity on exam. Differential diagnosis includes ligamentous injury versus fracture versus meniscal tear versus nerve injury etc. Initial workup will be conducted with plain film x-rays initially. Initial interventions include Toradol Tylenol oxycodone. Initial workup reviewed by me and I do not see any acute fracture and his imaging however he does have a significant joint effusion. Upon repeat evaluation patient did have good symptom relief with initial interventions. Given this patient will be placed in a knee immobilizer and crutches and referred to orthopedics with a prescription for electronically transmitted <Meka Lua, DO - Last Filed: 04/05/24 23:18> Romain Inquiry Pt receiving controlled substance: Yes Romain was queried for this patient: Yes Risks and benefits of using a controlled substance: were discussed with pt by me Vital Signs: 04/05/24 22:02 04/05/24 23:04 Temperature 98.3 F 97.9 F Temperature Source Oral Pulse Rate 62 Pulse Rate [Left] 59 L Respiratory Rate 18 16 Blood Pressure 110/57 L Blood Pressure [Right Arm] 136/79 Blood Pressure Mean [Right Arm] 98 Blood Pressure Source [Right Arm] Automatic Cuff Blood Pressure Position [Right Arm] Sitting 02 Sat by Pulse Oximetry 100 Oxygen Delivery Method Room Air Room Air Orders (Tests/Meds): ED MEDICATIONS Discontinued Medications Generic Name Dose Route Start Last Admin Trade Name Freq PRN Reason Stop Dose Admin Acetaminophen 1,000 mg 04/05/24 22:00 04/05/24 22:07 Acetaminophen 1,000mg/100ml Vial IV 04/05/24 22:01 1,000 mg ONCE ONE Administration Ketorolac Tromethamine 15 mg 04/05/24 22:00 04/05/24 22:08 Ketorolac 30mg/Ml Vial IV 04/05/24 22:01 15 mg ONCE ONE Administration Oxycodone HCl 5 mg 04/05/24 22:00 04/05/24 22:08 Oxycodone 5mg Immediate Release Tablet PO 04/05/24 22:01 5 mg ONCE ONE Administration ORDERS Category Date Time Status Femur XR right 2 views [XR femur RT 2V] Stat Exams 04/05/24 22:00 Taken Knee XR right 3 views [XR knee RT 3V] Stat Exams 04/05/24 22:00 Taken Tibia/fibula XR right 2 views [XR tibia fibula RT 2V] Exams 04/05/24 22:00 Taken Stat Critical Care <VIRIDIANA Shook - Last Filed: 04/05/24 22:46> Critical Care Time Critical Care Time: No
--- NOTE | 2024-04-05 22:00 | XR_ITS ---
PROCEDURE INFORMATION: Exam: XR Right Femur Exam date and time: 04/05/2024 10:17 PM Age: 24 years old Clinical indication: Injury or trauma; Fall; Blunt trauma; Thigh or upper leg and lower leg; Right TECHNIQUE: Imaging protocol: Radiologic exam of the right femur. Views: 2 views. COMPARISON: CR XR KNEE RT 3V 04/05/2024 10:17 PM FINDINGS: Bones/joints: Unremarkable. No acute fracture. Soft tissues: Unremarkable. IMPRESSION: No acute findings.
--- NOTE | 2024-04-05 22:00 | XR_ITS ---
PROCEDURE INFORMATION: Exam: XR Right Knee Exam date and time: 04/05/2024 10:17 PM Age: 24 years old Clinical indication: Injury or trauma; Fall; Blunt trauma; Lower leg; Right TECHNIQUE: Imaging protocol: Radiologic exam of the right knee. Views: 3 views. COMPARISON: CR XR FEMUR RT 2V 04/05/2024 10:17 PM FINDINGS: Bones/joints: Normal. Soft tissues: Normal. IMPRESSION: No acute findings.
--- NOTE | 2024-04-05 22:00 | XR_ITS ---
PROCEDURE INFORMATION: Exam: XR Right Tibia and Fibula Exam date and time: 04/05/2024 10:17 PM Age: 24 years old Clinical indication: Injury or trauma; Fall; Blunt trauma; Lower leg; Right TECHNIQUE: Imaging protocol: Radiologic exam of the right tibia and fibula. Views: 2 views. COMPARISON: CR XR KNEE RT 3V 04/05/2024 10:17 PM FINDINGS: Bones/joints: Normal. Soft tissues: Normal. IMPRESSION: No acute findings.
[2024-04-05 22:02] VITALS: BP 136/79; PULSE 59; RESP 18; TEMP 36.8; O2SAT 100; BMI 25.1
[2024-04-05] MEDS: ACETAMINOPHEN 1,000MG/100ML VIAL 1000 MG IV (22:07)
[2024-04-05] MEDS: OXYCODONE 5MG IMMEDIATE RELEASE TABLET 5 MG PO (22:08)
[2024-04-05] MEDS: KETOROLAC 30MG/ML VIAL 15 MG IV (22:08)
[2024-04-05 23:04] VITALS: BP 110/57; PULSE 62; RESP 16; TEMP 36.6; O2SAT 97
== END 2024-04-05 23:13 | disposition home or self-care (01) ==
PROVIDERS: Emergency Provider Emergency Medicine; PCP Nurse Practitioner Family
DX: S89.91XA Unspecified injury of right lower leg, initial encounter (principal); M25.561 Pain in right knee; W10.8XXA Fall (on) (from) other stairs and steps, initial encounter
CPT/HCPCS: 73552; 73562; 73590; 96374; 96375; 99284; J0131; J1885

== ENCOUNTER 2024-04-18 07:55 | Outpatient (CLI) | payer OTHER, SELFPAY ==
--- NOTE | 2024-04-18 08:03 | MR_ITS ---
FINAL REPORT TECHNIQUE: Multiplanar MR without contrast CLINICAL HISTORY: Rt Knee Pain FINDINGS: Articular cartilage: No focal defect Marrow signal: Unremarkable Joint fluid: Physiologic Menisci: Normal morphology without tear Ligaments: Collateral and cruciate ligaments intact IMPRESSION: Unremarkable exam Reviewed, Interpreted and Dictated by Mary Jane Olea MD Transcribed by Adri Zhang Authenticated and . [facility]
== END 2024-04-18 23:59 | disposition home or self-care (01) ==
LOC: RAD 07:56
PROVIDERS: PCP Nurse Practitioner Family; Visit Provider Physician Assistant
DX: M25.561 Pain in right knee (principal); S89.91XA Unspecified injury of right lower leg, initial encounter
CPT/HCPCS: 73721

== ENCOUNTER 2024-06-20 21:05 | Emergency (ER) | payer OTHER, SELFPAY ==
[2024-06-20 21:43] VITALS: BP 113/68; PULSE 67; RESP 16; TEMP 36.8; O2SAT 98; BMI 22.8
--- NOTE | 2024-06-20 21:50 | HMH.EDGENADL ---
Discharge Plan Disposition Patient Disposition: Home, Self-Care Condition: Good Prescriptions Prescriptions: No Action triamcinolone acetonide 0.1 % cream 1 applic topical BID PRN (Reason: itching) Qty: 30 0RF diphenhydramine HCl 25 mg capsule 25 mg PO Q6HP PRN (Reason: Itching) Qty: 30 0RF methylprednisolone 4 mg Tablets,Dose Pack 4 mg PO DIRECTED 6 Days Qty: 21 0RF Rx Instructions: Take 1 pack as directed for 6 days oxycodone 5 mg tablet 5 mg PO Q8H PRN (Reason: pain) Qty: 12 0RF Referrals Follow up/Referrals: Princess Willard APRN [Primary Care Provider] - See instructions Dwaine Carmona DO [Staff Physician] - See instructions Activity Restrictions/Add. Instructions Additional Instructions/Restrictions: At this time it was felt you are safe to be discharged home. If new or worsening symptoms please do not hesitate to return the emergency department. Please follow-up with your PCP within [address] Carmona for continued evaluation Clinical Impressions Clinical Impression: Crushing injury of right hand and finger, Hematoma, subungual, thumb, right Instructions Patient Instructions: DI for Wrist Strain Print Language Print Language: Korean Discharge ED Provider: Espinoza Newton General Adult HPI <VIRIDIANA Yu - Last Filed: 06/20/24 23:37> General Chief complaint: Extremity Injury, Upper Stated complaint: AO08/24@1800 RT hand inj Time Seen by Provider: 06/20/24 21:46 Mode of Arrival: Family Vehicle Source of Information: Patient Limitations: No Limitations Description of Symptoms (Recalled from ER Triage Doc. by RN): 24 yo male presents with right hand injury from freezer while moving furniture at around 1800 today. vss. emv 15. no previous history of injury. patient has FULL ROM. up to date on tetanus History of Present Illness HPI narrative: 24-year-old male presents the emergency department with a right thumb/hand/wrist injury that happened around 1800 today. Patient states that he was moving a freezer/furniture when he had the freezer pen in his right hand/thumb against the railing of a staircase. He admits to pain numbness and tingling of the right thumb hand and wrist. He denies any significant swelling, he does have some mild ecchymosis/subungual hematoma formation under the hallux. He denies any other acute symptomatology such as fever chills upper or lower extremity weakness, no chest pain no shortness of breath no nausea no vomiting. He is updated on his tetanus prophylaxis, he has no real relevant past medical history with the exception of the eosinophilic esophagitis for which she has had multiple what sounds like esophageal dilations. He is a current every day tobacco user (vapes), denies any alcohol or drug use, initial triage vitals are grossly unremarkable. Of note, patient has meeds had multiple clavicle/shoulder surgeries due to clavicle injury after football as a child. He does admit to some shoulder pain that will start in the finger/hand and radiate all the way up his upper arm into his shoulder, he has no decreased range of motion. Onset (ago): hour(s) Related Data Previous Rx's ?Medication ?Instructions ?Recorded diphenhydramine HCl 25 mg capsule 25 mg PO Q6HP PRN Itching #30 caps 03/29/24 methylprednisolone 4 mg tablets in 4 mg PO DIRECTED 6 days #21 tabs 03/29/24 a dose pack triamcinolone acetonide 0.1 % 1 applic topical BID PRN itching 03/29/24 topical cream #30 grams oxycodone 5 mg tablet 5 mg PO Q8H PRN pain #12 tabs 04/05/24 Allergies Allergy/AdvReac Type Severity Reaction Status Date / Time amoxicillin [AMOXICILLIN] Allergy Mild Verified 06/17/24 13:02 corn Allergy Verified 06/17/24 13:02 garlic Allergy Verified 06/17/24 13:02 shellfish derived Allergy Verified 06/17/24 13:02 [facility] <VIRIDIANA Yu - Last Filed: 06/20/24 23:37> [facility] Disclaimer: The information contained in this section may have been updated
--- NOTE | 2024-06-20 21:51 | XR_ITS ---
PROCEDURE INFORMATION: Exam: XR Right Wrist Exam date and time: 06/20/2024 9:53 PM Age: 24 years old Clinical indication: Injury or trauma; Other: Crushing; Wrist; Right; Additional info: Right thumb/hand/wrist pain, after crush injury TECHNIQUE: Imaging protocol: Radiologic exam of the right wrist. Views: 1 or 2 views. COMPARISON: CR XR WRIST RT 2V 20/06/2024 21:53 FINDINGS: Bones/joints: No acute fracture or dislocation. Soft tissues: Normal. IMPRESSION: No acute fracture or dislocation.
--- NOTE | 2024-06-20 21:51 | XR_ITS ---
PROCEDURE INFORMATION: Exam: XR Right Hand Exam date and time: 06/20/2024 9:53 PM Age: 24 years old Clinical indication: Injury or trauma; Other: Crushing; Hand; Right; Additional info: Right thumb/hand pain, wrist pain, after crush inj TECHNIQUE: Imaging protocol: Radiologic exam of the right hand. Views: 3 or more views. COMPARISON: CR XR WRIST RT 2V 20/06/2024 21:53 FINDINGS: Bones/joints: No acute fracture or dislocation. Soft tissues: Normal. IMPRESSION: No acute fracture or dislocation.
[2024-06-20 23:57] VITALS: BP 113/72; PULSE 75; RESP 19; TEMP 36.8; O2SAT 98
== END 2024-06-20 23:58 | disposition home or self-care (01) ==
PROVIDERS: Emergency Provider Emergency Medicine; PCP Nurse Practitioner Family
DX: S67.21XA Crushing injury of right hand, initial encounter (principal); S60.111A Contusion of right thumb with damage to nail, initial encounter; E11.9 Type 2 diabetes mellitus without complications; W23.1XXA Caught, crushed, jammed, or pinched between stationary objects, initial encounter; Y92.9 Unspecified place or not applicable
CPT/HCPCS: 73100; 73130; 99283

== ENCOUNTER 2024-06-24 09:00 | Outpatient (RCR) | payer OTHER, SELFPAY | END 2024-07-28 11:20 | disposition home or self-care (01) | LOC: PT 09:00 | PROVIDERS: Visit Provider Physician Assistant | DX: M25.561 Pain in right knee (principal); M25.461 Effusion, right knee; S83.91XA Sprain of unspecified site of right knee, initial encounter | CPT/HCPCS: 97014; 97035; 97110; 97112; 97163; 97164; 97530; G0283 ==

== ENCOUNTER 2024-09-28 08:28 | Emergency (ER) | payer OTHER, SELFPAY ==
[2024-09-28 08:40] VITALS: BP 117/75; PULSE 60; RESP 20; TEMP 36.6; O2SAT 99; BMI 23.4
[2024-09-28 08:58] LABS: UTC Influenza A Antigen Negative (Negative); UTC Influenza B Antigen Negative (Negative)
--- NOTE | 2024-09-28 08:59 | ED_ITS ---
Discharge Plan Disposition Patient Disposition: Home, Self-Care Condition: Good Prescriptions Prescriptions: New ondansetron 4 mg tablet,disintegrating 4 mg PO Q8H PRN (Reason: nausea and vomiting) Qty: 10 0RF Referrals Follow up/Referrals: Princess Willard APRN [Primary Care Provider] - See instructions Activity Restrictions/Add. Instructions Additional Instructions/Restrictions: Drink extra fluids with and between meals. If you have difficulty drinking, try very small amounts of water or suck on ice chips. ? Avoid fruit juices, as these do not replace minerals and can actually increase diarrhea. ? Children and adults can use sports drinks to replenish electrolytes. Younger children and infants should use products formulated for children, like oral rehydration solutions. ? Eat food in small amounts and let your stomach recover. ? Get lots of rest. You may feel tired or weak. ? No greasy or fried foods for the next 24-48 hours BRAT diet Bananas Rice Apples and [place] ? Make sure to drink plenty of liquids ? Return if needed ? Straight to ER if any life threatening symptoms ? Zofran as prescribed ? You was given an outpatient order for diarrhea panel, please collect specimen and bring back to outpatient lab then call back to the [facility] or follow up with family doctor for results ? Follow up with family doctor in the next 48-72 hours if no improvement or any worsening of symptoms Clinical Impressions Clinical Impression: Viral syndrome Stand Alone Forms Stand Alone Forms: Work/School Release Instructions Patient Instructions: Nausea and Vomiting-Adult, Diarrhea Print Language Print Language: Hungarian Discharge ED Provider: Gabriella Schreiber [facility] [place] H[place] General Stated complaint: congestion body aches v/d Mode of Arrival: Ambulatory Source of Information: Patient Limitations: No Limitations Time Seen by Provider: 09/28/24 08:59 Description of Symptoms (Recalled from Triage Doc. by RN): PATIENT C/O HEADACHE, BACK PAIN, VOMITING, DIARRHEA, BODY ACHES, FEVER, CHILLS, AND CONGESTION X 2 DAYS HEENT Symptoms (Recalled from RN notes): Yes Resp Symptoms (Recalled from RN notes): No Skin Symptoms (Recalled from RN notes): No MS Symptoms (Recalled from RN notes): No Functional Status (Recalled from RN notes): WNL History of Present Illness Provider Complaint: Patient states that after Thanksgiving several family members had similar symptoms but his has lasted longer States that he has been having body aches, N/V/D, low grade fever and chills States feels like he may have COVID or FLu so he came in to get checked Related Data Previous Rx's ?Medication ?Instructions ?Recorded ondansetron 4 mg disintegrating 4 mg PO Q8H PRN nausea and 09/28/24 tablet vomiting #10 tabs Allergies Allergy/AdvReac Type Severity Reaction Status Date / Time amoxicillin (AMOXICILLIN) Allergy Mild Vomiting Verified 09/28/24 08:54 corn Allergy Unknown Verified 09/28/24 08:54 allergy reaction garlic Allergy Unknown Verified 09/28/24 08:54 allergy reaction shellfish derived Allergy Hives Verified 09/28/24 08:54 Worker's Comp Is this a Worker's Comp case?: No [facility] Disclaimer: The information contained in this section may have been updated after the patient was seen, as this information can be updated by other users. Medical History (Updated 09/28/24 @ 09:06 by Gabriella Schreiber APRN) Depression Anxiety Diabetes mellitus Surgical History History of shoulder surgery History of esophagogastroduodenoscopy (EGD) History of tympanostomy tube placement History of tonsillectomy Family History Grandmother Coronary artery disease Heart attack Diabetes Hypertension Social History Smoking Status: Unknown if ever smoked second hand exposure: No alcohol intake: current alcohol intake frequency: holidays/special occasions only substance use type: denies use current occupational status: employed household members: significant other housing: house marital status: single ROS Obtained: Yes All systems reviewed & no additional complaints except as documented and Yes Systems reviewed as appropriate & no additional complaints except as documented Constitutional Constitutional: Reports system reviewed and no additional complaints, except as documented, Reports as per HPI, Reports body ache, Reports chills, Reports fever(s) and Reports headache(s) ENT Ears, Nose, Mouth, and Throat: Reports system reviewed and no additional complaints, except as documented, Reports as per HPI and Reports headache(s) Cardiovascular Cardiovascular: Reports system reviewed and no additional complaints, except as documented and Reports as per HPI Respiratory Respiratory: Reports system reviewed and no additional complaints, except as documented and Reports as per HPI Gastrointestinal Gastrointestingal: Reports system reviewed and no additional complaints, except as documented, as per HPI, diarrhea, nausea and vomiting; Denies abdominal pain Genitourinary Male Genitourinary: Reports system reviewed and no additional complaints, except as documented and Reports as per HPI Neurologic Neurologic: Reports headache(s) Physical Exam General General appearance: alert and in no apparent distress Eye Eye exam: Present normal appearance, PERRL and EOMI ENT ENT exam: Present normal exam, normal oropharynx, mucous membranes moist and TM's normal bilaterally Respiratory Respiratory exam: Present normal lung sounds bilaterally; Absent respiratory distress or wheezes Cardiovascular Cardiovascular exam: Present regular rate, normal rhythm and normal heart sounds Abdominal Exam Abdominal exam: Present soft and normal bowel sounds; Absent distention, tenderness or guarding Neurological Exam Neurological exam: Present alert, oriented X3 and normal gait Medical Decision Making Medical Records Screening: Per USPSTF and CDC recommendations, given the prevalence of disease in our region, it is our hospital?s policy to screen for HIV and viral Hepatitis for all patients aged 18 and over and those with ongoing risk factors. Romain Inquiry Pt receiving controlled substance: No Romain was queried for this patient: No Vital Signs: 09/28/24 08:40 Temperature 97.9 F Temperature Source Oral Pulse Rate [Left Brachial] 60 Respiratory Rate 20 Blood Pressure [Left Arm] 117/75 Blood Pressure Mean [Left Arm] 89 Blood Pressure Source [Left Arm] Automatic Cuff Blood Pressure Position [Left Arm] Sitting 02 Sat by Pulse Oximetry 99 Oxygen Delivery Method Room Air Lab Data Lab results reviewed: Yes I reviewed the patient's lab results. Lab Results 09/28/24 08:48: Influenza Type A Ag Negative, Influenza Type B Ag Negative
[2024-09-28 09:11] VITALS: BP 117/75; PULSE 60; RESP 20; TEMP 36.6; O2SAT 99
== END 2024-09-28 09:17 | disposition home or self-care (01) ==
PROVIDERS: Emergency Provider Nurse Practitioner; PCP Nurse Practitioner Family
DX: B34.9 Viral infection, unspecified (principal); R51.9 Headache, unspecified; M54.9 Dorsalgia, unspecified; R11.2 Nausea with vomiting, unspecified; R19.7 Diarrhea, unspecified; M79.10 Myalgia, unspecified site; R50.9 Fever, unspecified; R09.81 Nasal congestion
CPT/HCPCS: 87635; 87804; 99212; G0381

== ENCOUNTER 2024-10-30 10:28 | Emergency (ER) | payer OTHER, SELFPAY ==
[2024-10-30 11:10] VITALS: BP 121/76; PULSE 76; RESP 19; TEMP 36.9; O2SAT 98; BMI 21.1
--- NOTE | 2024-10-30 11:56 | ED_ITS ---
Discharge Plan Disposition Patient Disposition: Home, Self-Care Condition: Good Referrals Follow up/Referrals: Princess Willard APRN [Primary Care Provider] - See instructions Activity Restrictions/Add. Instructions Additional Instructions/Restrictions: Take Tylenol/Ibuprofen as needed for headache/pain. Increase fluids. Follow up with primary care provider. Clinical Impressions Clinical Impression: Frontal headache Stand Alone Forms Stand Alone Forms: Work/School Release Instructions Patient Instructions: DI for Headache Print Language Print Language: Swazi Discharge ED Provider: Melani Castillo [facility] [place] General Stated complaint: HEADACHE Mode of Arrival: Ambulatory Source of Information: Patient Limitations: No Limitations Time Seen by Provider: 10/30/24 11:55 Description of Symptoms (Recalled from Triage Doc. by RN): PATIENT C/O HEADACHE AND STOMACH ACHE X 1 WEEK HEENT Symptoms (Recalled from RN notes): Yes Resp Symptoms (Recalled from RN notes): No Skin Symptoms (Recalled from RN notes): No MS Symptoms (Recalled from RN notes): No Functional Status (Recalled from RN notes): WNL History of Present Illness Provider Complaint: Pt relates that he has had a bad headache for the past week along with a stomach ache. He states that he has had regular bowel movements. He denies taking anything for his headaches. He denies any sinus drainage. Related Data Allergies Allergy/AdvReac Type Severity Reaction Status Date / Time amoxicillin (AMOXICILLIN) Allergy Mild Vomiting Verified 09/28/24 08:54 corn Allergy Unknown Verified 09/28/24 08:54 allergy reaction garlic Allergy Unknown Verified 09/28/24 08:54 allergy reaction shellfish derived Allergy Hives Verified 09/28/24 08:54 Worker's Comp Is this a Worker's Comp case?: No [facility] Disclaimer: The information contained in this section may have been updated after the patient was seen, as this information can be updated by other users. Medical History (Updated 10/30/24 @ 12:07 by Melani Castilol APRN) Depression Anxiety Diabetes mellitus Surgical History History of shoulder surgery History of esophagogastroduodenoscopy (EGD) History of tympanostomy tube placement History of tonsillectomy Family History Grandmother Coronary artery disease Heart attack Diabetes Hypertension Social History Smoking Status: Unknown if ever smoked second hand exposure: No alcohol intake: current alcohol intake frequency: holidays/special occasions only substance use type: denies use current occupational status: employed Travel in the last 8 weeks: None household members: significant other housing: house marital status: single Have you lived/traveled outside US in past 30 days?: No Contact w/someone who lives/traveled outside US past 30 days?: No Exposure to someone with infectious disease in past 14 days?: No Do you have a fever (greater than 100.4 F or 38 C)?: No Have you tested positive for COVID-19: No Exposed to someone with COVID-19 in past 14 days?: No Do you have a sore throat?: No Do you have a cough?: No Do you have any weakness?: No Do you have any diarrhea?: No Are you experiencing any unusual bleeding?: No Do you have any muscle aches/pain?: No Do you have any abdominal pain?: No Are you experiencing loss of taste or smell?: No ROS Obtained: Yes All systems reviewed & no additional complaints except as documented Constitutional Constitutional: Reports system reviewed and no additional complaints, except as documented, Reports as per HPI and Reports headache(s) Eyes Eyes: Reports system reviewed and no additional complaints, except as documented, Denies sensitivity to light and Denies photophobia ENT Ears, Nose, Mouth, and Throat: Reports system reviewed and no additional complaints, except as documented and Reports headache(s) Cardiovascular Cardiovascular: Reports system reviewed and no additional complaints, except as documented Respiratory Respiratory: Reports system reviewed and no additional complaints, except as documented Gastrointestinal Gastrointestingal: Reports system reviewed and no additional complaints, except as documented and abdominal pain Comments: reports generalized abdominal pain off and on for the past week. Genitourinary Male Genitourinary: Reports system reviewed and no additional complaints, except as documented Musculoskeletal Musculoskeletal: Reports system reviewed and no additional complaints, except as documented Integumentary/Breasts Skin/Breast: Reports system reviewed and no additional complaints, except as documented Neurologic Neurologic: Reports system reviewed and no additional complaints, except as documented and Reports headache(s) Endocrine Endocrine: Reports system reviewed and no additional complaints, except as documented Hematologic/Lymphatic Henatologic/Lymphatic: Reports system reviewed and no additional complaints, except as documented Allergic/Immunologic Allergic/Immunologic: Reports system reviewed and no additional complaints, except as documented Physical Exam General General appearance: alert and in no apparent distress Head Head exam: atraumatic and normocephalic Eye Eye exam: Present normal appearance ENT ENT exam: Present normal exam, normal oropharynx and mucous membranes dry Neck Neck exam: Present normal inspection; Absent lymphadenopathy Chest Chest inspection: Present normal inspection and symmetric chest wall rise Respiratory Respiratory exam: Present normal lung sounds bilaterally Cardiovascular Cardiovascular exam: Present regular rate, normal rhythm and normal heart sounds Abdominal Exam Abdominal exam: Present soft and normal bowel sounds; Absent distention, tenderness, guarding, rebound or rigidity Extremities Exam Extremities exam: Present normal inspection Back Exam Back exam: Present normal inspection Neurological Exam Neurological exam: Present alert, oriented X3, CN II-XII intact and normal gait Psychiatric Psychiatric exam: Present normal affect and normal mood Skin Skin exam: Present warm, dry and intact Lymphatic Lymphatic Findings: no adenopathy Medical Decision Making Medical Records Screening: Per USPSTF and CDC recommendations, given the prevalence of disease in our region, it is our hospital?s policy to screen for HIV and viral Hepatitis for all patients aged 18 and over and those with ongoing risk factors. Romain Inquiry Pt receiving controlled substance: No Romain was queried for this patient: No Vital Signs: 10/30/24 11:10 Temperature 98.4 F Temperature Source Oral Pulse Rate [Left Brachial] 76 Respiratory Rate 19 Blood Pressure [Left Arm] 121/76 Blood Pressure Mean [Left Arm] 91 Blood Pressure Source [Left Arm] Automatic Cuff Blood Pressure Position [Left Arm] Sitting 02 Sat by Pulse Oximetry 98 Oxygen Delivery Method Room Air
[2024-10-30] MEDS: KETOROLAC 60MG/2ML VIAL 60 MG IM (12:10)
[2024-10-30 12:12] VITALS: BP 121/76; PULSE 76; RESP 19; TEMP 36.9; O2SAT 98
== END 2024-10-30 12:23 | disposition home or self-care (01) ==
PROVIDERS: Emergency Provider Nurse Practitioner Family; PCP Nurse Practitioner Family
DX: R51.9 Headache, unspecified (principal)
CPT/HCPCS: 96372; 99212; G0381; J1885

== ENCOUNTER 2025-01-10 18:57 | Emergency (ER) | payer OTHER, SELFPAY ==
[2025-01-10 19:05] VITALS: BP 126/78; PULSE 81; RESP 18; TEMP 36.6; O2SAT 100; BMI 22.1
--- NOTE | 2025-01-10 19:20 | PC.NURSE ---
Gave the patient a pillow to rest his sore arm on.
--- NOTE | 2025-01-10 19:27 | XR_ITS ---
PROCEDURE INFORMATION: Exam: XR Right Clavicle, Complete Exam date and time: 01/10/2025 7:28 PM Age: 24 years old Clinical indication: Pain; Shoulder; Right; Additional info: Pain no trauma TECHNIQUE: Imaging protocol: Radiologic exam of the right clavicle. Complete exam. Views: Any number of views. COMPARISON: CR XR CLAVICLE RT 09/29/2023 1:57 PM FINDINGS: Bones/joints: Chronic posttraumatic changes of the distal clavicle. No acute fracture or malalignment. Soft tissues: Unremarkable. IMPRESSION: No acute osseous findings.
--- NOTE | 2025-01-10 19:27 | XR_ITS ---
PROCEDURE INFORMATION: Exam: XR Right Shoulder Exam date and time: 01/10/2025 7:25 PM Age: 24 years old Clinical indication: Pain; Shoulder; Right; Additional info: Pain, no trauma TECHNIQUE: Imaging protocol: Radiologic exam of the right shoulder. Views: 2 or more views. COMPARISON: CR XR SHOULDER RT MIN 2V 09/29/2023 1:54 PM FINDINGS: Bones/joints: Chronic posttraumatic changes of the distal clavicle. No acute fracture or malalignment. Soft tissues: Unremarkable. IMPRESSION: No acute osseous findings.
--- NOTE | 2025-01-10 19:30 | HMH.EDGENADL ---
Discharge Plan Disposition Patient Disposition: Home, Self-Care Prescriptions Prescriptions: No Action escitalopram oxalate [Lexapro] 10 mg tablet 10 mg PO DAILY Qty: 30 2RF Referrals Follow up/Referrals: Princess Willard APRN [Primary Care Provider] - See instructions Activity Restrictions/Add. Instructions Additional Instructions/Restrictions: I suspect you likely have a rotator cuff injury and will need an outpatient MRI. Please follow-up with your orthopedic surgeon as discussed to obtain those images. May take Tylenol and ibuprofen as needed for your symptoms well Clinical Impressions Clinical Impression: Injury of right shoulder Print Language Print Language: [place] Rican Discharge ED Provider: Virgil Man General Adult HPI General Chief complaint: PAIN Stated complaint: Right shoulder pain Time Seen by Provider: 01/10/25 19:15 Mode of Arrival: Ambulatory Source of Information: Patient Description of Symptoms (Recalled from ER Triage Doc. by RN): Pt presents with c/o right shoulder pain x 2-3 days but is worse today and has limited ROM. Pt states he went to get out of bed and his shoulder popped. Pt states in 2018 he had a complete shoulder replacement. History of Present Illness HPI narrative: Patient is a 24-year-old male presenting today with inability to move the right shoulder after a pop 3 days ago. Has an extensive history of complicated clavicle pathology in his right upper extremity. Had an undiagnosed injury while playing football in 2013 ultimately with a complex poorly healing clavicle that was subsequently treated with a titanium iveth and cadaveric implants ultimately the titanium iveth was taken out and he had surgical repair again followed with [facility] however his surgeon now was in [place]. Denies any fevers or chills redness swelling or feeling sick. But is having significant difficulty with range of motion states that the pain limited significantly and up until 2 days ago had 6 years of good range of motion send he had 97% mobility. Related Data Previous Rx's ?Medication ?Instructions ?Recorded escitalopram oxalate 10 mg tablet 10 mg PO DAILY #30 tabs 12/18/24 (Lexapro) Allergies Allergy/AdvReac Type Severity Reaction Status Date / Time amoxicillin (AMOXICILLIN) Allergy Mild Vomiting Verified 01/10/25 19:09 corn Allergy Unknown Verified 01/10/25 19:09 allergy reaction garlic Allergy Unknown Verified 01/10/25 19:09 allergy reaction shellfish derived Allergy Hives Verified 01/10/25 19:09 PFSH PFSH Disclaimer: The information contained in this section may have been updated after the patient was seen, as this information can be updated by other users. Medical History (Updated 01/10/25 @ 19:36 by Virgil Man MD) Depression Anxiety Surgical History History of shoulder surgery History of esophagogastroduodenoscopy (EGD) History of tympanostomy tube placement History of tonsillectomy Family History Grandmother Coronary artery disease Heart attack Diabetes Hypertension Social History Smoking Status: Current every day smoker tobacco type: smokeless tobacco second hand exposure: No alcohol intake: current alcohol intake frequency: holidays/special occasions only substance use type: denies use current occupational status: employed Travel in the last 8 weeks: None household members: significant other housing: house marital status: single Have you lived/traveled outside US in past 30 days?: No Contact w/someone who lives/traveled outside US past 30 days?: No Exposure to someone with infectious disease in past 14 days?: No Do you have a fever (greater than 100.4 F or 38 C)?: No Have you tested positive for COVID-19: No Exposed to someone with COVID-19 in past 14 days?: No Do you have a sore throat?: No Do you have a cough?: No Do you have any weakness?: No Do you have any diarrhea?: No Are you experiencing any unusual bleeding?: No Do you have any muscle aches/pain?: No Do you have any abdominal pain?: No Are you experiencing loss of taste or smell?: No Other Medical History Have you received the Flu Vaccine for this season: No Have you received the Pneumonia Vaccine: No ROS Obtained: Yes All systems reviewed & no additional complaints except as documented Physical Exam General General appearance: alert and in no apparent distress Respiratory Respiratory exam: Present normal lung sounds bilaterally Cardiovascular Cardiovascular exam: Present regular rate Extremities Exam Extremities exam: Present other (Right shoulder is not warm or erythematous or swollen he has limited range of motion with internal and external rotation and also has tenderness over the lateral aspect of his clavicle and anterior shoulder neurovascularly intact) Neurological Exam Neurological exam: Present alert and oriented X3 Medical Decision Making Medical Records Screening: Per USPSTF and CDC recommendations, given the prevalence of disease in our region, it is our hospital?s policy to screen for HIV and viral Hepatitis for all patients aged 18 and over and those with ongoing risk factors. Romain Inquiry Pt receiving controlled substance: No Vital Signs: 01/10/25 19:05 Temperature 97.8 F Temperature Source Temporal Artery Scan Pulse Rate [Right] 81 Respiratory Rate 18 Blood Pressure [Right Arm] 126/78 Blood Pressure Mean [Right Arm] 94 Blood Pressure Source [Right Arm] Automatic Cuff Blood Pressure Position [Right Arm] Sitting 02 Sat by Pulse Oximetry 100 Oxygen Delivery Method Room Air Orders (Tests/Meds): ED MEDICATIONS Discontinued Medications Generic Name Dose Route Start Last Admin Trade Name Freq PRN Reason Stop Dose Admin Ketorolac Tromethamine 30 mg 01/10/25 19:27 01/10/25 19:33 Ketorolac 30mg/Ml Vial IM 01/10/25 19:28 30 mg ONCE ONE Administration ORDERS Category Date Time Status Clavicle XR right [XR clavicle RT] Stat Exams 01/10/25 19:27 Completed Shoulder XR right miminum 2 views [XR shoulder RT min Exams 01/10/25 19:27 Completed 2V] Stat Medical Decision Narrative: 24-year-old presenting today with a pop 3 days ago and an extensive and complicated clavicle history in the past requiring multiple surgeries. I suspect he has a rotator cuff tear from historical standpoint. He has no clinical signs or symptoms of an infectious or septic joint. Will not do a shoulder tap or any inflammatory markers. I will start off with a plain film but most likely he will need to follow-up with his orthopedic surgeon and get an MRI for further evaluation. 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 On reassessment patient remains very stable he will follow-up outpatient with his orthopedic surgeon to obtain an outpatient MRI again I suspect most likely this is rotator cuff injury. Critical Care Critical Care Time Critical Care Time: No
[2025-01-10] MEDS: KETOROLAC 30MG/ML VIAL 30 MG IM (19:33)
[2025-01-10 21:23] VITALS: BP 135/65; PULSE 81; RESP 16; TEMP 36.8; O2SAT 98
== END 2025-01-10 21:33 | disposition home or self-care (01) ==
PROVIDERS: Emergency Provider Student in an Organized Health Care Education/Training Program; PCP Nurse Practitioner Family
DX: S49.91XA Unspecified injury of right shoulder and upper arm, initial encounter (principal); X58.XXXA Exposure to other specified factors, initial encounter
CPT/HCPCS: 73000; 73030; 96372; 99283; J1885

== ENCOUNTER 2025-06-01 14:23 | Outpatient (CLI) | payer OTHER, SELFPAY ==
--- NOTE | 2025-06-01 14:26 | MR_ITS ---
FINAL REPORT CLINICAL HISTORY: PAIN RIGHT SHOULDER COMPARISON: None FINDINGS: Multi planar MR imaging of the right shoulder was performed. There is magnetic susceptibility artifact superior to the acromioclavicular joint, probably related to prior surgery. The supraspinatus tendon appears intact. There is no abnormal fluid in the subacromial/subdeltoid bursa. The anterior and posterior glenoid silvano appear intact. The subscapularis tendon is intact. The biceps tendon appears intact. The acromioclavicular joint otherwise appears intact. IMPRESSION: No evidence of significant internal derangement. Postoperative changes superior to the acromioclavicular joint. Reviewed, Interpreted and Dictated by Grey Murdock MD Transcribed by Katelynn Borwn Authenticated and [facility]
--- OUTSIDE RECORDS SUMMARY | 2025-06-01 14:26 | XMS_ITS | Clinical Summary ---
Author Organization [facility] Address [address] [place] [address] Care Team Providers Care Waxer Floor Name Role Phone Andre Palencia MD Primary Care Provider [phone] Allergies Active Allergy Reactions Criticality Noted Date Comments Amoxicillin Hives,Rash,Other - please document in the comment field Medium 07/26/2014 Nausea/Vomiting York Oil Unknown - Patient states they do not know rxn details Medium 10/17/2017 Per patient, confirmed via allergy test. No known exposure or reaction. Shellfish-Derived Products Unknown - Patient states they do not know rxn details High 10/17/2017 Patient states this was confirmed via allergy test, but no known exposure or reaction. Medications fluticasone (Flovent) 110 MCG/ACT inhaler Inhale 4 puffs 2 (two) times a day. Rinse mouth with water after use to reduce aftertaste and incidence of candidiasis. Do not swallow. 12 g Active Active Problems No known active problems Resolved Problems Problem Noted Date Diagnosed Date Resolved Date Esophageal tear 06/03/2023 06/04/2023 Leukocytosis 06/03/2023 06/04/2023 Tear of esophagus, initial encounter 06/03/2023 06/04/2023 Immunizations Immunization Administration Dates Next Due DTaP, Unspecified 02/03/2003, 0,01/25/2000,11/23,1999 HPV 9-Valent 04/26/2017,03/26/2017 HPV, Quadrivalent 04/22/2012 Hep A, ped/adol, 2 dose 03/26/2017,04/22/2012 Hep B, Adolescent or Pediatric 1999,1998 Hib (PRP-OMP) 05/02/2000,01/25/2000,1999 Hib / Hep B 1999 IPV 02/03/2003, 0,1999,04/04 MMR 02/03/2003,05/02/2000 Meningococcal MCV4, Unspecified 04/13/2010 Meningococcal MCV4P 03/26/2017 Moderna COVID-19 Vaccine (Re d Cap) 12+ years 04/16/2022 Pneumococcal Conjugate PCV 7 11/13/2000,09/02/20 00 TD (adult), 2 Lf tetanus tox oid, preservative free, adsorbed 10/13/2008 Tdap 03/26/2017 Varicella 04/22/2012,01/25/2000 Family History Medical History Relation Name Comments Conversions - Other Father Healthy adult Heart disease Maternal Grandmother Conversions - Other Mother Healthy adult Cancer Paternal Grandfather Cancer Paternal Grandmother Relation Name Status Comments Father Maternal Grandmother Mother Paternal Grandfather Paternal Grandmother Social History Tobacco Use Types Packs/Day Years Used Date Smoking Tobacco: Never Tobacco Cessation:Counseling Given: Not Answered Alcohol Use Standard Drinks/Week Comments Never 0 (1 standard drink = 0.6 oz pur e alcohol) Sex and Gender Information Value Date Recorded Sex Assigned at Not on file Legal Sex Male 7:55 PM EDT Gender Identity Not on file Sexual Orientation Not on file Last Filed Vital Signs Vital Sign Reading Time Taken Comments Blood Pressure 99/66 06/04/2023 7:52 AM EDT Pulse 80 06/04/2023 7:52 AM EDT Temperature 36.9 C (98.4 F) 06/04/2023 7:52 AM EDT Respiratory Rate 16 06/04/2023 3:55 AM EDT Oxygen Saturation 97% 06/04/2023 7:52 AM EDT Inhaled Oxygen Concentration - - Weight 77.1 kg (170 lb) 06/02/2023 8:22 PM EDT Height 175.3 cm (5' 9 ) 06/02/2023 8:22 PM EDT Body Mass Index 25.1 06/02/2023 8:22 PM EDT Plan of Treatment Health Maintenance Due Date Last Done Comments [facility]-Depression Screening 1999 [facility]-Infant/Child/Adol SDOH Screenings 1999 [facility]-Obesity Intervention 2005 [facility]- SDOH Screenings 2017 [facility]-Adult SDOH Screenings 2017 [id number] Vaccine (2 - season) 2024 04/16/2022 [facility]-Influenza Vaccine (#1) 2025 [facility]-DTaP,Tdap,and Td Vaccines (7 - Td or Tdap) 03/26/2027 03/26/2017, 10/13/2008, 02/03/2003, Additional history exists [facility]-Zoster Vaccines (1 of 2) 2049 04/22/2012, 01/25/2000 [facility]-Hepatitis B Vaccines Completed 000, 1999, 1999 [facility]-HIB Vaccines Completed 05/02/2000, , 1999, Additional history exists [facility]-Pneumococcal Vaccine: Pediatrics (0 to 5 Years) and At-Risk Patients (6 to 49 Years) Aged Out 11/13/2000, 09/02/2000 No longer eligibl e based on patient's age to complete this topic [facility]-IPV Vaccines Completed 02/03/2003, , 1999, Additional history exists [facility]-Varicella Vaccines Completed 04/22/2012, 1999 [facility]-Hepatitis A Vaccines Completed 03/26/2017, 03/29 HPV Vaccines Completed 04/26/2017, 02/27, 04/22/2012 [facility]-HIV Screening Completed 06/02/2023 [facility]-Hepatitis C Screening Completed 06/02/2023 [facility]-Rotavirus Vaccines Aged Out No lo nger eligible based on patient's age to complete this topic Procedures Procedure Name Priority Date/Time Associated Diagnosis Comments HEPATITIS C ANTIBODY - ED W/REFLEX TO HCV QUANT PCR STAT 06/02/2023 8:13 PM EDT HIV 1/2 ANTIBODY/ANTIGEN SCREEN WITH REFLEX TO HIV I/II DIFFERENTIATION STAT 06/02/2023 8:13 PM EDT from Last 3 Months or Most Recently Relevant to Health Maintenance Results * HIV 1 & 2 Antibody/Antigen Screen (06/02/2023 8:13 PM EDT) Pathologist [facility] HIV 1 & 2 Antibody/Antigen Screen Non Reactive Non Reactive 06/02/2023 9:07 PM EDT [facility] Comment:Screening for HIV 1 & 2 antibodies, and P24 antigen is NONREACTIVE. No confirmatory testing is required. Blood Venous blood specimen / Unknown Venipuncture / Unknown 06/02/2023 8:13 PM EDT 06/02/2023 8:22 PM EDT Dinora Rice MD LAB BLOOD ORDERABLES Final Resu lt Performing Organization Address City/[facility]/ZIP Co de Phone Number [facility]ALTH[facility]ARE [facility] [address] [place] [address] * Hepatitis C Antibody - ED (06/02/2023 8:13 PM EDT) Pathologist [facility] Hepatitis C Antibody Negative Negative 06/02/2023 9:07 PM EDT [facility] Blood Venous blood specimen / Unknown Venipuncture / Unknown 06/02/2023 8:13 PM EDT 06/02/2023 8:22 PM EDT Dinora Rice MD LAB BLOOD ORDERABLES Final Resu lt Performing Organization Address City/[facility] Co de Phone Number [facility] [address] [place] [address] from Last 3 Months or Most Recently Relevant to Health Maintenance Insurance [employer] [facility] MEDICAID Advance Directives * Full Code (Latest Code Status on File) Date Activated Date Inactivated Comments 06/03/2023 12:12 AM 06/04/2023 4:31 PM Question Answer Comments Patient has decision-making capacity? Yes Care Teams Waxer Floor Relationship Specialty Start Date End Date Andre Palencia MD [address] [facility] [place] [address] PCP - General 03/10/21
--- OUTSIDE RECORDS SUMMARY | 2025-06-01 14:26 | XMS_ITS | Clinical Summary ---
Author Organization [facility] Address [address] [place] [address] Care Team Providers Care Missile Pad Mechanic Name Role Phone Ministerio Matos Primary Care Provider [phone] Allergies Active Allergy Reactions Criticality Noted Date Comments Amoxicillin Hives,Rash High 01/10/2017 Shellfish-Derived Products Hives Medications meloxicam (MOBIC) 15 MG tablet Take 1 tablet by mouth Daily. 30 tablet 2 01/23/2022 Active Active Problems No known active problems Family History Medical History Relation Name Comments Depression Father No Known Problems Mother Relation Name Status Comments Father Alive Mother Alive Social History Tobacco Use Types Packs/Day Years Used Date Smoking Tobacco: Never Smokeless Tobacco: Former Snuff Quit: 10/28/2016 Tobacco Cessation:Counseling Given: Yes Alcohol Use Standard Drinks/Week Comments No 0 (1 standard drink = 0.6 oz pur e alcohol) Abuse Screen Answer Date Recorded Unsafe at Home or Work/School Not on file Feels Threatened by Someone? Not on file 08/2023 Does Anyone Keep You from Co ntacting Others or Doint Things Outside the Home? Not on file 08/07/2023 Physical Sign of Abuse Present Not on file 1 Housing Stability Answer Date Recorded Current Living Arrangements Not on file 07/28 Potentially Unsafe Housing Conditions Not on femi e 08/07/2023 Family and Community Support Answer David e Recorded Help with Day-to-Day Activities Not on file 08/07/2023 Lonely or Isolated Not on file 08/07/2023 Employment Answer Date Recorded Do you want help finding or keeping work or a gonzales b? Not on file 08/07/2023 Disabilities Answer Date Recorded Concentrating, Remembering, or Making Decisions Difficulty Not on file 08/07/2023 Doing Errands Independently Difficulty Not on fi le 08/07/2023 Education Answer Date Recorded Help with school or training? Not on file Preferred Language Not on file 08/07/2023 Sex and Gender Information Value Date Recorded Sex Assigned at Not on file Legal Sex Male 11:22 AM EDT Gender Identity Not on file Sexual Orientation Not on file Last Filed Vital Signs Vital Sign Reading Time Taken Comments Blood Pressure 118/62 04/17/2022 3:17 PM EDT Pulse 63 06/09/2019 2:05 PM EDT Temperature 37 C (98.6 F) 05/12/2019 3:34 PM EDT Respiratory Rate 16 06/09/2019 2:05 PM EDT Oxygen Saturation 98% 06/09/2019 2:05 PM EDT Inhaled Oxygen Concentration - - Weight 70.4 kg (155 lb 3.2 oz) 04/17/2022 3:17 P M EDT Height 175.3 cm (5' 9.02 ) 04/17/2022 3:17 PM ED T Body Mass Index 22.91 04/17/2022 3:17 PM EDT Plan of Treatment Health Maintenance Due Date Last Done Comments ANNUAL PHYSICAL 05/09/2017 COVID-19 Vaccine (2 - 2023-2 5 season) 2024 04/16/2022 INFLUENZA VACCINE 07/28/2025 TDAP/TD VACCINES (3 - Td or Tdap) 03/26/2027 03/26/2017, 10/13/2008 Pneumococcal Vaccine 0-49 Aged Out 2000, 09/02/2000 No longer eligible based on patient's age to complete this topic HEPATITIS C SCREENING Completed 06/02/2023 , 03/18/2018 Procedures Procedure Name Priority Date/Time Associated Diagnosis Comments HEPATITIS PANEL, ACUTE Routine 03/18/2018 11:49 AM EDT Elevated liver enzymes from Last 3 Months or Most Recently Relevant to Health Maintenance Results * Hepatitis Panel, Acute (03/18/2018 11:49 AM EDT) Hep A IgM Negative Negative [facility] Hepatitis B Surface Ag Negative Negative [facility] Hep B Core IgM Negative Negative [facility] Hep C Virus Ab <0.1 0.0 - 0.9 s/co ratio [facility] Comment: Negative: < 0.8 Indeterminate: 0.8 - 0.9 Positive: > 0.9 The CDC recommends that a positive HCV antibody result be followed up with a HCV Nucleic Acid Amplification test ([id number]). Blood 03/18/2018 11:4 9 AM EDT 03/18/2018 Narrative [facility] (AMBUL[facility]) - 03/19/2018 2:16 PM EDT Performed at: - [address] [id number] [employer] Engineering Superintendent: Addy Blake PhD, Phone: [phone] Patient Fasting: N Ministerio [facility] BLOOD ORDERABLES Final Res ult Performing Organization Address City/State/[facility] Co de Phone Number [facility] (AMBULATORY) [address] [place] [address], [facility] [address] [place] [id number], from Last 3 Months or Most Recently Relevant to Health Maintenance Insurance [facility] [place] [id number] [address] Care Teams Missile Pad Mechanic Relationship Specialty Start Date End Date Ministerio Matos PA [address] [place] [address] PCP - General Physician Telegraphic Typewriter Repairer 03/06/18
== END 2025-06-01 23:59 | disposition home or self-care (01) ==
LOC: RAD 14:24
PROVIDERS: PCP Nurse Practitioner Family; Visit Provider Orthopaedic Surgery Adult Reconstructive Orthopaedic Surgery
DX: M25.511 Pain in right shoulder (principal)
CPT/HCPCS: 73221